=== PATIENT | male | born 1945 | race Native Hawaiian/Other Pacific Islander ===

== ENCOUNTER 2016-08-11 10:09 | Day surgery (SDC) | payer MEDICARE, OTHER ==
[2016-08-11] VITALS (8 sets, daily range): BP systolic 113–147; BP diastolic 56–83; PULSE 78–85; RESP 17–20; TEMP 98.4–98.9; O2SAT 93–98
[~2016-08-11] VITALS: Ht 167.6 cm; Wt 91.0 kg
[2016-08-11] MEDS ORDERED: METF500T PO (10:32)
[2016-08-11] MEDS ORDERED: LISI-515 PO (10:33)
[2016-08-11] MEDS ORDERED: AMLO5TAB2 PO (10:33)
[2016-08-11] MEDS ORDERED: ENOX120P SQ (10:34)
[2016-08-11] MEDS ORDERED: SODIUM CHLOR 0.9% 1000 ML IV SCH (11:00)
[2016-08-11] MEDS ORDERED: SODIUM CHLORIDE 0.9% FLUSH 10 ML FLUSH IV FLUSH PRN (11:00)
[2016-08-11] MEDS ORDERED: LIDOCAINE 1%/EPINEPHrine 1:100,000 SOLN 20 ML VIAL ONE (12:07)
[2016-08-11] MEDS ORDERED: MIDAZOLAM HCL 5 MG/5 ML VIAL ONE (12:10)
[2016-08-11] MEDS ORDERED: fentaNYL CITRATE 250 MCG/5 ML AMP ONE (12:10)
[2016-08-11] MEDS ORDERED: THROMBIN (TOPICAL) 5,000 UNIT VIAL ONE (12:28)
[2016-08-11] MEDS ORDERED: HYDROmorphone HCL PF 2 MG/ML VIAL ONE (13:16)
--- NOTE | 2016-08-11 13:41 | RADRPT ---
EXAM DATE/TIME: 08/11/2016 12:25 [facility] COMPARISON: No previous studies available for comparison. INDICATIONS : Liver mass. SEDATION TIME: 15 minutes BIOPSY SITE: Right MEDICATION(S): 1.) 3 mg midazolam (Versed) IV 2.) 150 mcg fentanyl (Sublimaze) IV DEVICE(S): 1.) 20 gauge Temno core biopsy needle MEDICAL HISTORY : Pulmonary embolis. SURGICAL HISTORY : None. ENCOUNTER: Initial ACUITY: 1 day PAIN SCORE: 0/10 LOCATION: Right A total of two core specimen(s) were obtained and sent to the laboratory for pathologic evaluation. PROCEDURE: 1. CT guided liver biopsy. 2. Conscious sedation with continuous EKG and oximetry monitoring. 3. EKG and oximetry remained stable throughout the procedure. Prior to the procedure informed consent was obtained. Any appropriate prior imaging studies were rev iewed. Using automated exposure control and adjustment of the mA and/or kV according to patient size, radiat ion dose was kept as low as reasonably achievable to obtain optimal diagnostic quality images. The site was prepped in a sterile fashion. Full sterile technique was used, including cap, mask, raz rile gloves and gown and a large sterile sheet. Hand hygiene and 2% chlorhexidine and/or betadine/al cohol prep was utilized per protocol for cutaneous antisepsis. The skin and subcutaneous tissues wer e infiltrated with local anesthetic solution. Under CT guidance an 18 gauge blunt was placed down to the lesion and 4 cores obtained. The track wa s embolized with Gelfoam and thrombin. Follow-up CT scan reveals no hemorrhage. The patient tolerated the procedure well and there were no complications. The patient was returned to the Radiology Outpatient Unit in stable condition. CONCLUSION: Uncomplicated CT guided biopsy. David Winchester MD FACR on August 11, 2016 at 13:38 Board Certified Radiologist. This report was verified electronically.
[2016-08-11] MEDS ORDERED: HYDROmorphone HCL PF 1 MG/ML VIAL IV ONE (14:00)
[2016-08-11] MEDS ORDERED: GELATIN 12 MM/7 MM FOAM ONE (14:11)
== END 2016-08-11 16:25 | disposition home or self-care (01) ==
LOC: HRAD 10:09 → HRIP 10:10 → HRAD 16:25
PROVIDERS: ATTEND Internal Medicine
DX: R16.0 Hepatomegaly, not elsewhere classified (principal); E11.9 Type 2 diabetes mellitus without complications; I10 Essential (primary) hypertension
CPT/HCPCS: 47000; 77012; 88307; 88333; 88341; 88342; J1170; J2250; J3010

== ENCOUNTER 2016-10-18 13:16 | Day surgery (SDC) | payer MEDICARE, OTHER ==
[~2016-10-18 13:16] MED LIST: AMLO5TAB2 PO; ENOX120P SQ; LISI-515 PO; METF500T PO
--- NOTE | 2016-10-18 17:02 | RADRPT ---
EXAM DATE/TIME: 10/18/2016 00:00 [facility] COMPARISON : No previous studies available for comparison. INDICATIONS : lesion L5 OBJECTIVE: Temperature: 98.2 Heart Rate: 103 Blood Pressure: 150/86 Respiratory: 20 Oximetry: 100 PNEUMONIA VACCINE: YES HISTORY OF PRESENT ILLNESS: Mr. Almeida is a very pleasant 71-year-old male who is accompanied by his daughter on this visit. He w as diagnosed with stage IV hepatocellular carcinoma in June and is status post Ytrium 90 and current ly on Sorafenib. He reports a several week history of waxing and waning what appear to be neuropathy neuropathy symptoms primarily involving the anterior thigh regions bilaterally. However, approximatel y 6 days ago he began experiencing severe low back pain with some radiation towards the gluteal regio ns. He rates his pain as 9/10 and states that current pain medications are not effective despite incr eased morphine dose from 15 to 30 mg. His pain is most prominent with movement particularly prolonged standing or sitting. He denies any bowel or urinary incontinence. He is unable to ambulate for any m ass distance due to this pain and is transported via wheelchair. Recent MRI examination demonstrates an enhancing mass in the anterior L5 vertebral body without significant compression deformity. There is no paravertebral or posterior epidural extension. He is also fully anticoagulated given recent his tory of pulmonary embolism. PAST MEDICAL HISTORY : Hypertension. Diabetes mellitus 2. HCC Pulmonary Embolism PAST SURGICAL HISTORY : Coronary artery stent. SOCIAL HISTORY : No alcohol use. Illicit drug use Tobacco;none. ALLERGIES: NKDA MEDICATIONS: Prinivil (Lisinopril) 20 mg q.d. Metformin 500 mg b.i.d. Lovenox 150 mg q.d. Nexevar 400 mg b.i.d. Mitrazine 15 mg q.d. Zanax 0.25 mg t.i.d. Megastrol 10ml mg b.i.d. Morphine 15 mg prn PHYSICAL EXAMINATION: General: No acute distress Back: Significant tenderness on palpation of the L5 vertebral body Neuro: Grossly intact IMAGING STUDIES: MRI examination of the thoracic and lumbar spine performed yesterday. There is an enhancing lesion in the anterior L5 vertebral body without evidence for significant compression deformity. Increased T2 signal is confined to the region of abnormal enhancement. 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 He does have additional pain generators which I be lieve may be neuropathy and potentially treatment related. He should benefit greatly from thermal abl ation and cement augmentation at L5. Extensive discussion regarding the risks and benefits of ablation and cement augmentation. All questi ons were answered. PLAN: L5 ablation and cement augmentation. TIME SPENT: 20 minutes. Curtis Haile MD on October 18, 2016 at 16:34 Board Certified Radiologist. This report was verified electronically.
== END 2016-10-18 14:30 | disposition home or self-care (01) ==
LOC: HROP 13:16 → HRIP 13:17 → HROP 14:30
PROVIDERS: ATTEND Internal Medicine
DX: C22.0 Liver cell carcinoma (principal)
CPT/HCPCS: 99213; G0463

== ENCOUNTER 2016-10-24 07:24 | Day surgery (SDC) | payer MEDICARE, OTHER ==
[~2016-10-24] VITALS: Ht 167.6 cm; Wt 80.0 kg
[2016-10-24 07:54] VITALS: BP 122/80; PULSE 90; RESP 18; TEMP 97.4; O2SAT 98
[2016-10-24] MEDS ORDERED: ceFAZolin 2 GM PREMIX 50 ML IV SCH (08:00)
[2016-10-24] MEDS ORDERED: SODIUM CHLOR 0.9% 1000 ML INJ 1,000 ML IV SCH (08:00)
[2016-10-24] MEDS ORDERED: OXYC1CAP PO (08:03)
[2016-10-24] MEDS ORDERED: MEGE20TA PO (08:03)
[2016-10-24] MEDS ORDERED: [UNRECOGNIZED DRUG - OTHER] PO (08:03)
[2016-10-24] MEDS ORDERED: MORP1TAB24 PO (08:03)
[2016-10-24 08:17] LABS: APTT (PATIENT) 28.2 SEC (24.3-30.1); INTERNATIONAL NORMALIZED RATIO 1.1 RATIO; PROTHROMBIN TIME - PATIENT 11.9 SEC (9.8-11.6)
[2016-10-24] MEDS ORDERED: fentaNYL CITRATE 250 MCG/5 ML AMP ONE (09:49)
[2016-10-24] MEDS ORDERED: MIDAZOLAM HCL 5 MG/5 ML VIAL ONE (09:49)
[2016-10-24] MEDS ORDERED: BUPIVACAINE HCL PF 0.75% 30 ML VIAL ONE ×2 (10:18→10:19)
[2016-10-24 12:15] VITALS: BP 123/79; PULSE 78; RESP 20; TEMP 97.5; O2SAT 92
[2016-10-24 12:30] VITALS: BP 142/81; PULSE 75; RESP 18; O2SAT 96
[2016-10-24 13:00] VITALS: BP 117/78; PULSE 82; RESP 18; O2SAT 97
[2016-10-24 13:30] VITALS: BP 105/72; PULSE 89; RESP 18; O2SAT 97
--- NOTE | 2016-10-24 13:43 | PD.RAD ---
Post Procedure Progress Note Pre Procedure Diagnosis: (1) Metastasis Post Procedure Diagnosis: (1) Metastasis Procedure Date: Oct 24, 2016 Supervising Radiologist: Curtis Haile Proceduralist/Assist: Fabian Robert, RT(R), Loretta Go RT(R)() Anesthesia: Conscious Sedation Plan of Activity Patient to Unit: ROPU Patient Condition: Good Additional Comments: L5 RFA and kyphoplasty with good result. See PACS Report for procedural detail/treatment Curtis Haile MD Oct 24, 2016 13:43
--- NOTE | 2016-10-24 14:56 | RADRPT ---
EXAM DATE/TIME: 10/24/2016 10:17 COMPARISON: No previous studies available for comparison. INDICATIONS : 71-year-old male with history of recently diagnosed stage IV hepatocellular carcinoma and metastatic disease to L5 vertebral body. Patient has an acute onset of lower lumbar debilitating pain with suspe cted combination biological and mechanical pain generator at L5. Patient therefore presents for verte bral ablation and cement augmentation. MEDICAL HISTORY : History of hepatocellular carcinoma with spinal metastases, liver mass, CAD, HTN, PE, thoracic spondy losis. SURGICAL HISTORY : History of liver biopsy, Y-90 treatment, cardiac stent placement. ENCOUNTER: Initial ACUITY: 1 month PAIN SCORE: 8/10 LOCATION: lower back and left leg FLUORO TIME: 17.7 minutes IMAGE SERIES: 4 SEDATION TIME: 105 minutes LEVEL: L5 MEDICATION(S): 1.) 4.5 mg midazolam (Versed) IV 2.) 300 mcg fentanyl (Sublimaze) IV 3.) 12 ml. Bupivicaine SC 4.) 2 g cefazolin (Ancef) IV DEVICE: 1. 8 cc AVAMax bone cement PROCEDURES PERFORMED: 1. Moderate sedation 2. L5 radiofrequency ablation and kyphoplasty FINDINGS: Prior to the procedure informed consent was obtained. Appropriate prior imaging studies were reviewed . Full sterile technique was used, including, mass, sterile gloves and gown and a large sterile sheath. Hand hygiene and 2% chlorhexidine and/or Betadine/alcohol prep was utilized per protocol for cutaneo us antisepsis. The skin and subcutaneous tissues were infiltrated with local anesthetics solution. Patient was placed prone on the angiographic table. The L5 vertebral body was localized. Bupivacaine solution was injected to the periosteal surface for local anesthesia. Next, Kyphon trocar needles wer e advanced via transpedicular approach to the L5 vertebral body. 15 mm radiofrequency ablation probes were then inserted into the anterior L5 vertebral body and complete ablation cycle was performed. Ne xt, 15 mm Kyphon balloons were inflated in the anterior vertebral body and bone cement was instilled through a cannula under careful fluoroscopic guidance. In total, approximately 8 mL of cement was inj ected. There is no evidence for cement epidural extravasation. Trocars were then removed and hemostas is obtained with manual compression. Patient tolerated the procedure well and there were no immediate postprocedural complications. CONCLUSION: 1. Technically successful L5 radiofrequency ablation and kyphoplasty, as above. Curtis Haile MD on October 24, 2016 at 14:41 Board Certified Radiologist. This report was verified electronically.
[2016-10-24 15:47] VITALS: BP 103/67; PULSE 96; RESP 18; O2SAT 93
== END 2016-10-24 16:27 | disposition home or self-care (01) ==
LOC: HROP 07:24 → HRIP 07:25 → HROP 16:27
PROVIDERS: ATTEND Internal Medicine
DX: C79.51 Secondary malignant neoplasm of bone (principal); I25.10 Atherosclerotic heart disease of native coronary artery without angina pectoris; I10 Essential (primary) hypertension; M47.894 Other spondylosis, thoracic region; Z86.711 Personal history of pulmonary embolism; Z95.5 Presence of coronary angioplasty implant and graft
CPT/HCPCS: 20982; 22514; 85610; 85730; 99152; 99153; C1886; J0690; J2250; J3010; J7030

== ENCOUNTER 2016-10-26 11:38 | Day surgery (SDC) | payer MEDICARE, OTHER ==
[~2016-10-26 11:38] MED LIST changes: -AMLO5TAB2 PO; +MEGE20TA PO; +MORP1TAB24 PO; +OXYC1CAP PO; +[UNRECOGNIZED DRUG - OTHER] PO
[2016-10-26 12:00] VITALS: BP 110/62; PULSE 107; RESP 18; TEMP 98.3; O2SAT 100
[2016-10-26] MEDS ORDERED: LACTATED RINGER'S 1000 ML INJ 1,000 ML IV ONE (14:00)
[2016-10-26] MEDS ORDERED: BUPIVACAINE HCL PF 0.75% 10 ML VIAL ONE (14:13)
[2016-10-26] MEDS ORDERED: LIDOCAINE 1%/EPINEPHrine 1:100,000 SOLN 20 ML VIAL ONE (14:13)
[2016-10-26] MEDS ORDERED: TRIAMCINOLONE ACETONIDE 40 MG/ML VIAL ONE (14:14)
[2016-10-26] MEDS ORDERED: HYDROmorphone HCL PF 2 MG/ML VIAL ONE (14:20)
[2016-10-26 15:00] VITALS: BP 111/64; PULSE 92; RESP 18; O2SAT 98
[2016-10-26 15:15] VITALS: BP 112/66; PULSE 97; RESP 18; O2SAT 98
--- NOTE | 2016-10-26 16:21 | RADRPT ---
EXAM DATE/TIME: 10/26/2016 14:33 INDICATIONS : Persistent left paraspinal lower back pain following spinal ablation and cement augmentation for meta static L5 mass. Imaging demonstrates significant left facet degenerative change at L5-S1 and this cor relates with patient's site of maximal tenderness. ACCESS LEVEL: RightL5-S1 MEDICATION(S): 1.) 1 mg hydromorphone (Dilaudid) IV DEVICE(S): 1.) 20 gauge Spinal needle MEDICAL HISTORY : Cardiovascular disease. Hypertension. Diabetes SURGICAL HISTORY : Coronary artery stent. ENCOUNTER: Initial ACUITY: 1 day PAIN SCORE: 6/10 LOCATION: Left back PROCEDURE : CT guided steroid injection. Using automated exposure control and adjustment of the mA and/or kV according to patient size, radiat ion dose was kept as low as reasonably achievable to obtain optimal diagnostic quality images. DICOM format image data is available electronically for review and comparison. The risks, benefits and alternatives to the procedure were explained and verbal and written consent w as obtained. The site was prepped in sterile fashion. Full sterile technique was used, including ca p, mask, sterile gloves and gown and a large sterile sheet. Hand hygiene and 2% chlorhexidine and/or betadine/alcohol prep was utilized per protocol for cutaneous antisepsis. The skin and subcutaneous tissues were infiltrated with local anesthetic solution. 22 gauge spinal needle was advanced under careful CT guidance into the left L5-S1 facet joint. Next, a solution containing Kenalog and anesthetic were slowly injected into the joint and the needle was r emoved. CONCLUSION: Uncomplicated CT guided left L5-S1 facet joint steroid injection as above. Curtis Haile MD on October 26, 2016 at 16:17 Board Certified Radiologist. This report was verified electronically.
== END 2016-10-26 16:20 | disposition home or self-care (01) ==
LOC: HROP 11:38 → HRIP 11:38 → HROP 16:20
PROVIDERS: ATTEND Radiology Diagnostic Radiology
DX: M54.5 Low back pain (principal); C79.51 Secondary malignant neoplasm of bone; I25.10 Atherosclerotic heart disease of native coronary artery without angina pectoris; I10 Essential (primary) hypertension; E11.9 Type 2 diabetes mellitus without complications; Z79.84 Long term (current) use of oral hypoglycemic drugs
CPT/HCPCS: 77012; 96360; 96372; J1170; J3301; J7120

== ENCOUNTER 2016-11-15 13:25 | Inpatient (IN) | payer MEDICARE, OTHER ==
[~2016-11-15] VITALS: Ht 167.6 cm; Wt 82.8 kg
[2016-11-15] MEDS ORDERED: GADODIAMIDE PF 287 MG/ML 20 ML VIAL (for RAD MRI) IVCONTRAST ONE (13:26)
[2016-11-15 13:29] VITALS: BP 79/56; PULSE 103; RESP 24; O2SAT 98
[2016-11-15 13:34] VITALS: BP 105/67; PULSE 102; RESP 22; TEMP 98.6; O2SAT 99
[2016-11-15] MEDS ORDERED: SODIUM CHLORIDE 0.9% FLUSH 10 ML FLUSH IV FLUSH PRN ×2 (14:00→18:15)
--- NOTE | 2016-11-15 14:08 | PD ---
HPI . Right upper quadrant pain Chief Complaint: Abdominal Pain Time Seen by Provider: 13:38 Travel History International Travel<30 days: No Contact w/Intl Traveler<30days: No Traveled to known affect area: No History of Present Illness HPI This patient presents to us from the oncology clinic because of right upper quadrant pain. The patient has stage IV hepatocellular carcinoma. He was reportedly treated with Dilaudid, 2 mg IV in the clinic and states that he is now pain-free. He had the onset of pain 15 hours prior to presentation. The pain was 10/10 but is now 0. No modifying factor. No vomiting or diarrhea. No fever. No urinary tract symptoms. The patient's son states that the oncologist told him that the patient needed to have a scan of his head to rule out metastases to his brain. He also states that the patient needs to be evaluated for possible PE. PFSH Past Medical History Cancer: No Cardiovascular Problems: Yes Diabetes: Yes Patient Takes Glucophage: No Endocrine: Yes Gastrointestinal Disorders: No Genitourinary: No Hepatitis: No Hiatal Hernia: No Hypertension: Yes Immune Disorder: No Medical other: No Musculoskeletal: Yes (KNEES AND ELBOWS) Neurologic: No Psychiatric: No Reproductive: No Respiratory: Yes Immunizations Current: Yes Thyroid Disease: No Past Surgical History AICD: No Cardiac Surgery: Yes (CARDIAC STENT) Joint Replacement: No Pacemaker: No Other Surgery: No Social History Alcohol Use: No Tobacco Use: No Substance Use: No Allergies-Medications (Allergen,Severity, Reaction): Coded Allergies: No Known Allergies (Unverified , 10/26/16) Reported Meds & Prescriptions Reported Meds & Active Scripts Active Dilaudid (Hydromorphone HCl) 4 Mg Tab 4 Mg PO Q4H PRN Reported Morphine ER (Morphine Sulfate) 15 Mg Tab 15 Mg PO DIRECTED PRN Oxycodone (Oxycodone HCl) 5 Mg Cap Unknown Dose PO DIRECTED PRN Megestrol (Megestrol Acetate) 20 Mg Tab 10 Mg PO BID [nexvar] 2 Tab PO BID Lovenox Inj (Enoxaparin Sodium) 120 Mg/0.8 Ml Syr 150 Mg SQ DAILY Lisinopril 20 Mg Tab 20 Mg PO DAILY Metformin (Metformin HCl) 500 Mg Tab 500 Mg PO BIDPC With meals Review of Systems Except as stated in HPI: all other systems reviewed are Neg General / Constitutional: No: Fever, Chills Gastrointestinal: Positive: Abdominal Pain, No: Nausea, Vomiting, Diarrhea Genitourinary: No: Urgency, Frequency, Dysuria Neurologic: Positive: Dizziness Physical Exam Narrative GENERAL: Awake and alert and in no acute distress. SKIN: Warm and dry. HEAD: Atraumatic. Normocephalic. EYES: Pupils equal and round. Sclera are anicteric. ENT: No nasal bleeding or discharge. Mucous membranes pink and moist. NECK: Trachea midline. Supple. CARDIOVASCULAR: Regular rate and rhythm. Systolic ejection murmur. RESPIRATORY: No accessory muscle use. Lungs clear with good air movement throughout. GASTROINTESTINAL: Abdomen soft. Minimal right upper quadrant tenderness. No guarding or rebound. Nondistended. MUSCULOSKELETAL: No obvious deformities. No edema. NEUROLOGICAL: Awake and alert. No obvious cranial nerve deficits. Motor grossly within normal limits. Normal speech. PSYCHIATRIC: Appropriate mood and affect; insight and judgment normal. Data Data Last Documented VS Vital Signs Date Time Temp Pulse Resp B/P (MAP) Pulse Ox O2 Delivery O2 Flow Rate FiO2 11/15/16 13:34 98.6 102 22 105/67 (80) 99 11/15/16 13:29 Room Air Orders Orders Complete Blood Count With Diff (11/15/16 13:51) Comprehensive Metabolic Panel (11/15/16 13:51) Prothrombin Time / Inr (Pt) (11/15/16 13:51) Act Partial Throm Time (Ptt) (11/15/16 13:51) Iv Access Insert/Monitor (11/15/16 13:51) Sodium Chloride 0.9% Flush (Ns Flush) (11/15/16 14:00) Ct Pulmonary Angiogram (11/15/16 13:51) Mri Brain W&W/O Contrast (11/15/16 13:51) Gadodiamide Pf Inj (Omniscan Pf Inj) (11/15/16 13:26) Sodium Chlor 0.9% 1000 Ml Inj (Ns 1000 M (11/15/16 16:30) Iohexol 350 Inj (Omnipaque 350 Inj) (11/15/16 16:00) Ct Abd/Pel W/O Iv Contrast (11/15/16 17:28) Labs Laboratory Tests Test 11/15/16 13:45 White Blood Count 11.2 TH/MM3 Red Blood Count 4.09 MIL/MM3 Hemoglobin 11.9 GM/DL Hematocrit 37.9 % Mean Corpuscular Volume 92.8 FL Mean Corpuscular Hemoglobin 29.1 PG Mean Corpuscular Hemoglobin Concent 31.4 % Red Cell Distribution Width 21.8 % Platelet Count 423 TH/MM3 Mean Platelet Volume 7.1 FL Neutrophils (%) (Auto) 83.4 % Lymphocytes (%) (Auto) 10.0 % Monocytes (%) (Auto) 6.5 % Eosinophils (%) (Auto) 0.0 % Basophils (%) (Auto) 0.1 % Neutrophils # (Auto) 9.4 TH/MM3 Lymphocytes # (Auto) 1.1 TH/MM3 Monocytes # (Auto) 0.7 TH/MM3 Eosinophils # (Auto) 0.0 TH/MM3 Basophils # (Auto) 0.0 TH/MM3 CBC Comment AUTO DIFF Differential Total Cells Counted 100 Neutrophils % (Manual) 73 % Band Neutrophils % 14 % Lymphocytes % 9 % Monocytes % 3 % Neutrophils # (Manual) 9.9 TH/MM3 Metamyelocytes 1 % Nucleated Red Blood Cells 1 /100 WBC Differential Comment FINAL DIFF MANUAL Platelet Estimate HIGH Platelet Morphology Comment NORMAL Prothrombin Time 11.6 SEC Prothromb Time International Ratio 1.0 RATIO Activated Partial Thromboplast Time 36.0 SEC Blood Urea Nitrogen 28 MG/DL Creatinine 0.96 MG/DL Random Glucose 93 MG/DL Total Protein 6.3 GM/DL Albumin 2.0 GM/DL Calcium Level 7.6 MG/DL Alkaline Phosphatase 117 U/L Aspartate Amino Transf (AST/SGOT) 70 U/L Alanine Aminotransferase (ALT/SGPT) 68 U/L Total Bilirubin 0.3 MG/DL Sodium Level 134 MEQ/L Potassium Level 5.0 MEQ/L Chloride Level 103 MEQ/L Carbon Dioxide Level 18.9 MEQ/L Anion Gap 12 MEQ/L Estimat Glomerular Filtration Rate 78 ML/MIN MDM Medical Decision Making Medical Screen Exam Complete: Yes Emergency Medical Condition: Yes Medical Record Reviewed: Yes (this patient is followed here in the oncology clinic for the hepatocellular carcinoma. It was diagnosed in June of this year. He has associated metastases to the long and to L5. He has had a previous PE and is on Lovenox.) Differential Diagnosis Differential diagnosis of abdominal pain includes but is not limited to gastritis, pancreatitis, hepatitis, gastroenteritis, gallbladder disease, constipation, urinary retention, UTI, peptic ulcer disease, diverticulitis or appendicitis Differential diagnosis of dizziness includes but is not limited to vertigo, dehydration, acute blood loss, sepsis, ACS Narrative Course This patient presents to us for pain control related to liver cancer. The son tells me that the patient also needs to be scanned for rule out metastatic disease to his brain. The son further states that the patient needs to have further evaluation for possible PE. I have ordered an MRI of his brain and a CT for PE. The patient is currently pain-free. CBC & BMP Diagram 11/15/16 13:45 Total Protein 6.3 L, Albumin 2.0 L, Calcium Level 7.6 L, Alkaline Phosphatase 117, Aspartate Amino Transf (AST/SGOT) 70 H, Alanine Aminotransferase (ALT/SGPT ) 68, Total Bilirubin 0.3 IVF have been ordered. Last Impressions CT Angiography 11/15/16 1351 Signed Impressions: Service Date/Time: Tuesday, November 15, 2016 15:58 - CONCLUSION: 1. Right lower lobe pulmonary mass worrisome for primary bronchogenic carcinoma or metastatic lesion. 2. Acute pulmonary embolus on the right. This is relatively small volume thrombus. 3. Metastatic disease involving the liver. Tanner Foy Jr., MD Brain MRI 11/15/16 1351 Signed Impressions: Service Date/Time: Tuesday, November 15, 2016 14:43 - CONCLUSION: 1. No acute intracranial abnormality. 2. No MRI evidence to suggest metastatic disease to the brain. 3. Atrophy. Tanner Foy Jr., MD Physician Communication Physician Communication Dr. Argueta would like for the patient to be admitted for pain control. Dr. Harrington will admit to obs. Diagnosis Primary Impression: Right upper quadrant abdominal pain Additional Impression: Liver cancer Qualified Codes: C22.0 - Liver cell carcinoma Admitting Information Admitting Physician Requests: Observation Patient Instructions: General Instructions, Pharmacological Management of Cancer Pain (DC) Additional Instructions: Dilaudid for pain unrelieved by morphine and oxycodone. Follow up with your oncologist next week for continued pain management. Med/Other Pt SpecificInfo: Prescription(s) given Condition: Stable Adali Melo MD Nov 15, 2016 14:08
[2016-11-15 14:15] LABS: AUTOMATED NEUTROPHIL # 9.4 TH/MM3 (1.8-7.7); BASOPHIL % 0.1 % (0.0-2.0); HEMATOCRIT 37.9 % (39.0-51.0); LYMPHOCYTE # 1.1 TH/MM3 (1.0-4.8); MEAN CELL VOLUME 92.8 FL (80.0-100.0); MEAN CORPUSCULAR HEMOGLOBIN 29.1 PG (27.0-34.0); MEAN CORPUSCULAR HGB CONC 31.4 % (32.0-36.0); MONO % 6.5 % (0.0-8.0); NEUT % 83.4 % (16.0-70.0); PLATELET COUNT 423 TH/MM3 (150-450); RED BLOOD COUNT 4.09 MIL/MM3 (4.50-5.90); RED CELL DISTRIBUTION WIDTH 21.8 % (11.6-17.2); WHITE BLOOD COUNT 11.2 TH/MM3 (4.0-11.0)
[2016-11-15 14:16] LABS: HEMO FLAGS AUTO DIFF
[2016-11-15 14:25] LABS: PROTHROMBIN TIME - PATIENT 11.6 SEC (9.8-11.6)
[2016-11-15 14:28] LABS: ANION GAP 12 MEQ/L (5-15); AST (GOT) 70 U/L (15-37); BICARBONATE 18.9 MEQ/L (21.0-32.0); BLOOD UREA NITROGEN 28 MG/DL (7-18); CHLORIDE 103 MEQ/L (98-107); GLOMERULAR FILTRATION RATE 78 ML/MIN (>89); SODIUM (NA) 134 MEQ/L (136-145)
[2016-11-15 14:29] LABS: ALT (GPT) 68 U/L (12-78)
[2016-11-15 14:31] LABS: ALKALINE PHOSPHATASE 117 U/L (45-117); TOTAL BILIRUBIN ADULT 0.3 MG/DL (0.2-1.0)
[2016-11-15 14:49] LABS: BANDS 14 % (0-6); CORRECTED NUCLEATED RBC 1 /100 WBC (0-0); METAMYELOCYTES 1 % (0-1); NEUTROPHIL # MANUAL DIFF 9.9 TH/MM3 (1.8-7.7); POLYS (SEG NEUTROPHILS) 73 % (16-70); WBC DIFF SAMPLE 100
[2016-11-15 14:50] LABS: PLATELET ESTIMATE SMEAR HIGH (NORMAL); PLATELET MORPHOLOGY NORMAL (NORMAL)
[2016-11-15 14:51] LABS: SCAN/DIFF FINAL DIFF MANUAL
--- NOTE | 2016-11-15 15:30 | RADRPT ---
EXAM DATE/TIME: 11/15/2016 14:43 [facility] COMPARISON: No previous studies available for comparison. INDICATIONS : Metastatic disease. Dizziness. CONTRAST: 16 cc Omniscan (gadodiamide) IV MEDICAL HISTORY : Liver cancer. SURGICAL HISTORY : Discectomy, lumbar. Kyphoplasty. ENCOUNTER: Initial ACUITY: 1 day PAIN SCORE: 0/10 LOCATION: head. TECHNIQUE: Multiplanar, multisequence MRI of the brain was performed both prior to and following the administrat ion of paramagnetic contrast. FINDINGS: CEREBRUM: Atrophy. The ventricles are normal for age. No evidence of midline shift, mass lesion, hemorrhage or acute infarction. No extraaxial fluid collections are seen. The pituitary gland and suprasellar ci salomon are normal in configuration. WHITE MATTER: No significant signal abnormalities are seen in the white matter. POSTERIOR FOSSA: The cerebellum and brainstem are intact. The 4th ventricle is midline. The cerebellopontine angle is unremarkable. The cerebellar tonsils are normal in position. DIFFUSION IMAGING: No focal areas of restricted diffusion are seen. No evidence of acute infarction. EXTRACRANIAL: The visualized portions of the orbits and paranasal sinuses are unremarkable. POST-CONTRAST: No abnormal areas of parenchymal or dural enhancement. No evidence of blood-brain barrier breakdown. CONCLUSION: 1. No acute intracranial abnormality. 2. No MRI evidence to suggest metastatic disease to the brain. 3. Atrophy. Tanner Foy Jr., MD on November 15, 2016 at 15:24 Board Certified Radiologist. This report was verified electronically.
[2016-11-15] MEDS ORDERED: IOHEXOL 350 MG/ML 10 ML VIAL (for RAD DIAG) IV PUSH ONE (16:00)
[2016-11-15] MEDS ORDERED: SODIUM CHLOR 0.9% 1000 ML INJ 1,000 ML IV ONE (16:30)
[2016-11-15] MEDS ORDERED: DILA4TAB2 PO (16:33)
--- NOTE | 2016-11-15 16:48 | RADRPT ---
EXAM DATE/TIME: 11/15/2016 15:58 [facility] COMPARISON: No previous studies available for comparison. INDICATIONS : Right sided pain since last night. IV CONTRAST: 80 cc Omnipaque 350 (iohexol) IV RADIATION DOSE: 25.8 CTDIvol (mGy) MEDICAL HISTORY : Carcinoma, hepatocellular. Hypertension. Diabetes mellitus type 2. SURGICAL HISTORY : ENCOUNTER: Initial ACUITY: 1 day PAIN SCALE: 10/10 LOCATION: Right upper quadrant TECHNIQUE: Volumetric scanning of the chest was performed using a pulmonary embolism protocol MIP images were re constructed. Using automated exposure control and adjustment of the mA and/or kV according to patien t size, radiation dose was kept as low as reasonably achievable to obtain optimal diagnostic quality images. DICOM format image data is available electronically for review and comparison. Follow-up recommendations for detected pulmonary nodules are based at a minimum on nodule size and pa tient risk factors according to Fleischner Society Guidelines. FINDINGS: PULMONARY ARTERIES: A filling defect is seen involving the interlobar pulmonary artery on the right with extension into t he proximal basilar segmental branches. No embolus seen on the left. Pulmonary arteries are normal in caliber. LUNGS: Within the super segment of the right lower lobe there is a bilobed some pleural-parenchymal mass and measures 2.9 x 2.4 x 2.2 cm. Diffuse emphysematous changes. PLEURAE: There is no pleural thickening or pleural effusion. MEDIASTINUM: The heart is normal in size. No pericardial effusion. Aorta is normal in caliber. Significant coronar y artery atherosclerotic calcifications. Small anterior mediastinal lymph nodes observed. The largest is precarinal measuring 1.2 x 0.9 cm. A normal fatty hilar structure is seen associated with this ly mph node. MUSCULOSKELETAL: Within normal limits for patient age. MISCELLANEOUS: Multiple hepatic masses observed consistent with metastatic disease. A dominant mass within the right lobe measures approximately 10 cm in diameter. CONCLUSION: 1. Right lower lobe pulmonary mass worrisome for primary bronchogenic carcinoma or metastatic lesion. 2. Acute pulmonary embolus on the right. This is relatively small volume thrombus. 3. Metastatic disease involving the liver. Tanner Foy Jr., MD on November 15, 2016 at 16:28 Board Certified Radiologist. This report was verified electronically.
[2016-11-15 17:00] VITALS: BP 116/62; PULSE 84; RESP 20
--- NOTE | 2016-11-15 18:03 | RADRPT ---
EXAM DATE/TIME: 11/15/2016 17:40 [facility] COMPARISON: No previous studies available for comparison. INDICATIONS : Right side pain since last night. ORAL CONTRAST: No oral contrast ingested. RADIATION DOSE: 9.96 CTDIvol (mGy) MEDICAL HISTORY : Metastatic, liver. Hypertension. SURGICAL HISTORY : Carotid stent. ENCOUNTER: Initial ACUITY: 1 day PAIN SCALE: 10/10 LOCATION: Right lower quadrant TECHNIQUE: Volumetric scanning of the abdomen and pelvis was performed. Using automated exposure control and ad justment of the mA and/or kV according to patient size, radiation dose was kept as low as reasonably achievable to obtain optimal diagnostic quality images. DICOM format image data is available electro nically for review and comparison. FINDINGS: There are patchy ground glass infiltrates in the lingula and right lower lobe. No effusions. There ar e multiple ill-defined masses throughout the liver with a confluent heterogeneous hypodense mass in t he right lobe measuring 9 point centimeters. There is a cardiophrenic lymph node measuring 1.2 cm in short axis dimension. The liver has a nodular contour. There is diffuse gallbladder wall thickening. The spleen is small in size. Pancreas normal. Adrenal glands are normal. Kidneys are unremarkable wit h contrast in the collecting systems and urinary bladder which is normal. There is evidence of previo us TURP procedure. Stomach, small bowel, large bowel are unremarkable. There are foci of subcutaneous air and nodularity in the anterior, wall at the level of the umbilicus from medicinal injections. No signs of bowel obstruction, free fluid or free air. Osseous structures are intact with degenerative changes noted and previous kyphoplasty at L5. L5 spondylolysis bilaterally. CONCLUSION: 1. Metastatic disease to the liver. 2. Patchy infiltrates in the visualized lungs. 3. L5 pars defects. Goyo Santillan MD on November 15, 2016 at 17:59 Board Certified Radiologist. This report was verified electronically.
[2016-11-15] MEDS ORDERED: NALOXONE HCL 0.4 MG/ML AMP IV PRN (18:15)
[2016-11-15] MEDS ORDERED: BISACODYL 10 MG SUPP RECTAL PRN (18:15)
[2016-11-15] MEDS ORDERED: MAGNESIUM HYDROXIDE SUSP 30 ML CUP PO PRN (18:15)
[2016-11-15] MEDS ORDERED: ACETAMINOPHEN 325 MG TAB PO PRN (18:15)
[2016-11-15] MEDS ORDERED: LACTULOSE SYRUP 20 GM/30 ML CUP PO PRN (18:15)
[2016-11-15] MEDS ORDERED: ONDANSETRON HCL 4 MG/2 ML VIAL IVP PRN (18:15)
[2016-11-15] MEDS ORDERED: SENNOSIDES 8.6 MG TAB PO PRN (18:15)
[2016-11-15] MEDS ORDERED: GLUCAGON 1 MG/ML VIAL OTHER PRN (18:15)
[2016-11-15] MEDS ORDERED: DEXTROSE 50% IN WATER 50 ML VIAL(D50) IV PRN (18:15)
[2016-11-15] MEDS ORDERED: oxyCODONE/ACETAMINOPHEN 5 MG/325 MG TAB PO PRN (18:45)
[2016-11-15] MEDS ORDERED: HYDROmorphone HCL PF 1 MG/ML VIAL IV PUSH PRN (18:45)
--- NOTE | 2016-11-15 19:06 | HHI.HP ---
[facility] Non-Staff Admission Diagnosis cancer pain Diagnoses: Chief Complaint: Abdominal pain Travel History International Travel<30 Days: No Contact w/Intl Traveler <30 Da: No Traveled to Known Affected Are: No History of Present Illness Written by Jackson Castaneda PA-C, acting as scribe for Dr. Grayson Harrington on 11/15/16 at 18:50. is 71 yo, of [place] decent with history inclusive of Stage IV hepatocellular cancer (he is followed by Dr. Shilo Argueta, Oncology), hypertension , hyperlipidemia, coronary artery disease, heart disease, diabetes. 's primary care physician is Miguel Joel M.D. Mr. Almeida was diagnosed in June, with hepatocellular cancer. At the time of his diagnosis he also had pulmonary emboli and was placed daily Lovenox injections. Since that time he has developed anorexia, cachexia, bone pain, and shortness of breath. Metastasis resulted in L5 damage. Mr. Almeida underwent radio frequency ablation and kyphoplasty on 10/24/16. Mr. Almeida presents to [facility] due to uncontrolled abdominal pain. He stated the pain worsened last evening and was "moving all over here (upper right quadrant) last night. He also stated he becomes short of breath "when I take even a few steps." He stated he came to [facility] ED for management and evaluation of his condition. Mr. Almeida denied fever, chills, cough, cardiac chest pain, headache , visual disturbance, NVD. He did report having a heart murmur and underwent an echocardiogram in his PCP's office last Sunday. He stated those results were negative. Mr. Almeida also reported he experiences pain "when I take a deep breath." A 10 point ROS was conducted and, except as noted above was negative. ED staff administered pain medication which Mr. Almeida stated "started to help very quickly." MRI of the brain was negative for metastases. CTA indicated the presence of a mass in the right lower lobe of the lung. Pulmonary embolus was noted in the right lower lobe of the lung. Liver metastases was noted. Pelvic CT indicated liver metastases, patchy infiltrates to the visualized lobes, and L5 pars defects. Mr. Almeida is being admitted to address his presenting issues. Review of Systems Except as stated in HPI: all other systems reviewed are Neg Past Family Social History Past Medical History Anorexia Cachexia Coronary artery disease Diabetes Heart disease, Stage IV hepatocellular cancer Hyperlipidemia Hypertension Osteoarthritis Past Surgical History L5- Radio frequency ablation and kyphoplasty (10/24/16) Stent placement (2007) Reported Medications Reported Meds & Active Scripts Active Reported Morphine ER (Morphine Sulfate) 15 Mg Tab 15 Mg PO DIRECTED PRN Oxycodone (Oxycodone HCl) 5 Mg Cap Unknown Dose PO DIRECTED PRN Megestrol (Megestrol Acetate) 20 Mg Tab 10 Mg PO BID [nexvar] 2 Tab PO BID Lovenox Inj (Enoxaparin Sodium) 120 Mg/0.8 Ml Syr 150 Mg SQ DAILY Lisinopril 20 Mg Tab 20 Mg PO DAILY Metformin (Metformin HCl) 500 Mg Tab 500 Mg PO BIDPC With meals Allergies: Coded Allergies: No Known Allergies (Unverified , 10/26/16) Active Ordered Medications Current Medications Medications (Trade) Dose Ordered Sig/Hilary Route Start Time Stop Time Status Last Admin (NS Flush) 2 ml UNSCH PRN IV FLUSH 11/15/16 14:00 (Lovenox Inj) 150 mg DAILY SQ 11/16/16 09:00 UNV (Prinivil) 20 mg DAILY PO 11/16/16 09:00 UNV (Megace) 10 mg BID PO 11/15/16 21:00 UNV Sodium Chloride 1,000 ml @ 75 mls/hr [id number] IV 11/15/16 18:07 11/16/16 07:26 UNV (NS Flush) 2 ml UNSCH PRN IV FLUSH 11/15/16 18:15 UNV (NS Flush) 2 ml BID IV FLUSH 11/15/16 21:00 UNV (Tylenol) 650 mg Q4H PRN PO 11/15/16 18:15 UNV (Zofran Inj) 4 mg Q6H PRN IVP 11/15/16 18:15 UNV (Narcan Inj) 0.4 mg UNSCH PRN IV 11/15/16 18:15 UNV (Alyx-Colace) 1 tab BID PO 11/15/16 21:00 UNV (Milk Of Magnesia Liq) 30 ml Q12H PRN PO 11/15/16 18:15 UNV (Senokot) 17.2 mg Q12H PRN PO 11/15/16 18:15 UNV (Dulcolax Supp) 10 mg DAILY PRN RECTAL 11/15/16 18:15 UNV (Lactulose Liq) 30 ml DAILY PRN PO 11/15/16 18:15 UNV (D50w (Vial) Inj) 50 ml UNSCH PRN IV 11/15/16 18:15 UNV (Glucagon Inj) 1 mg UNSCH PRN OTHER 11/15/16 18:15 UNV (NovoLOG SUPPLEMENTAL SCALE) 1 ACHS SLIDING SCALE SQ 11/15/16 21:00 UNV (Oramorph Sr) 30 mg Q12HR PO 11/15/16 21:00 UNV (Percocet 5-325 Mg) 1 tab Q4H PRN PO 11/15/16 18:45 UNV (Dilaudid Pf Inj) 1 mg Q4H PRN IV PUSH 11/15/16 18:45 UNV Family History Father age 68 throat cancer Mother age 70 due to myocardial infarction. Brother age 62 due to "blood cancer". Social History Pt denied nicotine use. Pt denied illicit/recreational drug use. Alcohol use was denied. Physical Exam Vital Signs Vital Signs Date Time Temp Pulse Resp B/P (MAP) Pulse Ox O2 Delivery O2 Flow Rate FiO2 11/15/16 17:00 84 20 116/62 (80) 11/15/16 13:34 98.6 102 22 105/67 (80) 99 11/15/16 13:29 103 24 79/56 (64) 98 Room Air Physical Exam GENERAL: This is a well-nourished, well-developed patient, in no apparent distress. SKIN: No rashes, ecchymoses or lesions. Cool and dry. HEAD: Atraumatic. Normocephalic. EYES: Pupils equal round and reactive. Extraocular motions intact. No scleral icterus. No injection or drainage. ENT: Nose without bleeding or purulent drainage Airway patent. NECK: Trachea midline. No lymphadenopathy. Supple and nontender. CARDIOVASCULAR: Regular rate and rhythm without gallops or rubs. Systolic murmur was noted. RESPIRATORY: Clear to auscultation. Breath sounds equal bilaterally. No wheezes , rales, or rhonchi. GASTROINTESTINAL: Abdomen soft and nondistended. No hepato-splenomegaly, palpable masses or guarding. Right upper quadrant tenderness elicited upon palpation. MUSCULOSKELETAL: Extremities without clubbing, cyanosis, or edema. No joint tenderness, effusion, or edema noted. NEUROLOGICAL: Awake and alert. Cranial nerves II through XII intact. Motor and sensory grossly within normal limits. Five out of 5 muscle strength in all muscle groups. Speech was clear and fluent. Laboratory Laboratory Tests Test 11/15/16 13:45 White Blood Count 11.2 Red Blood Count 4.09 Hemoglobin 11.9 Hematocrit 37.9 Mean Corpuscular Volume 92.8 Mean Corpuscular Hemoglobin 29.1 Mean Corpuscular Hemoglobin Concent 31.4 Red Cell Distribution Width 21.8 Platelet Count 423 Mean Platelet Volume 7.1 Neutrophils (%) (Auto) 83.4 Lymphocytes (%) (Auto) 10.0 Monocytes (%) (Auto) 6.5 Eosinophils (%) (Auto) 0.0 Basophils (%) (Auto) 0.1 Neutrophils # (Auto) 9.4 Lymphocytes # (Auto) 1.1 Monocytes # (Auto) 0.7 Eosinophils # (Auto) 0.0 Basophils # (Auto) 0.0 CBC Comment AUTO DIFF Differential Total Cells Counted 100 Neutrophils % (Manual) 73 Band Neutrophils % 14 Lymphocytes % 9 Monocytes % 3 Neutrophils # (Manual) 9.9 Metamyelocytes 1 Nucleated Red Blood Cells 1 Differential Comment FINAL DIFF MANUAL Platelet Estimate HIGH Platelet Morphology Comment NORMAL Prothrombin Time 11.6 Prothromb Time International Ratio 1.0 Activated Partial Thromboplast Time 36.0 Blood Urea Nitrogen 28 Creatinine 0.96 Random Glucose 93 Total Protein 6.3 Albumin 2.0 Calcium Level 7.6 Alkaline Phosphatase 117 Aspartate Amino Transf (AST/SGOT) 70 Alanine Aminotransferase (ALT/SGPT) 68 Total Bilirubin 0.3 Sodium Level 134 Potassium Level 5.0 Chloride Level 103 Carbon Dioxide Level 18.9 Anion Gap 12 Estimat Glomerular Filtration Rate 78 Result Diagram: 11/15/16 1345 11/15/16 1345 Imaging Last Impressions Abdomen/Pelvis CT 11/15/16 4208 Signed Impressions: Service Date/Time: Tuesday, November 15, 2016 17:40 - CONCLUSION: 1. Metastatic disease to the liver. 2. Patchy infiltrates in the visualized lungs. 3. L5 pars defects. Goyo Santillan MD CT Angiography 11/15/161350 Signed Impressions: Service Date/Time: Tuesday, November 15, 2016 15:58 - CONCLUSION: 1. Right lower lobe pulmonary mass worrisome for primary bronchogenic carcinoma or metastatic lesion. 2. Acute pulmonary embolus on the right. This is relatively small volume thrombus. 3. Metastatic disease involving the liver. Tanner Foy Jr., MD Brain MRI 11/15/161350 Signed Impressions: Service Date/Time: Tuesday, November 15, 2016 14:43 - CONCLUSION: 1. No acute intracranial abnormality. 2. No MRI evidence to suggest metastatic disease to the brain. 3. Atrophy. Tanner Foy Jr., MD Capmarshai VTE Risk Assessment Caprini VTE Risk Assessment: Mod/High Risk (score >= 2) Caprini Risk Assessment Model Point Value = 1 Point Value = 2 Point Value = 3 Point Value = 5 Age 41-60 Minor surgery BMI > 25 kg/m2 Swollen legs Varicose veins or History of unexplained or recurrent spontaneous Oral contraceptives or hormone replacement Sepsis (< 1 month) Serious lung disease, including pneumonia (< 1 month) Abnormal pulmonary function Acute myocardial infarction Congestive heart failure (< 1 month) History of inflammatory bowel disease Medical patient at bed rest Age 61-74 Arthroscopic surgery Major open surgery (> 45 min) Laparoscopic surgery (> 45 min) Malignancy Confined to bed (> 72 hours) Immobilizing plaster cast Central venous access Age >= 75 History of VTE Family history of VTE Factor V Leiden Prothrombin [id number] Lupus anticoagulant Anticardiolipin antibodies Elevated serum homocysteine Heparin-induced thrombocytopenia Other congenital or acquired thrombophilia Stroke (< 1 month) Elective arthroplasty Hip, pelvis, or leg fracture Acute spinal cord injury (< 1 month) Prophylaxis Regimen Total Risk Factor Score Risk Level Prophylaxis Regimen 0-1 Low Early ambulation 2 Moderate Order ONE of the following: *Sequential Compression Device (SCD) *Heparin 5000 units SQ BID 3-4 Higher Order ONE of the following medications: *Heparin 5000 units SQ TID *Enoxaparin/Lovenox 40 mg SQ daily (WT < 150 kg, CrCl > 30 mL/min) *Enoxaparin/Lovenox 30 mg SQ daily (WT < 150 kg, CrCl > 10-29 mL/min) *Enoxaparin/Lovenox 30 mg SQ BID (WT < 150 kg, CrCl > 30 mL/min) AND/OR *Sequential Compression Device (SCD) 5 or more Highest Order ONE of the following medications: *Heparin 5000 units SQ TID (Preferred with Epidurals) *Enoxaparin/Lovenox 40 mg SQ daily (WT < 150 kg, CrCl > 30 mL/min) *Enoxaparin/Lovenox 30 mg SQ daily (WT < 150 kg, CrCl > 10-29 mL/min) *Enoxaparin/Lovenox 30 mg SQ BID (WT < 150 kg, CrCl > 30 mL/min) AND *Sequential Compression Device (SCD) Assessment and Plan Problem List: (1) Right upper quadrant abdominal pain ICD Code: R10.11 - Right upper quadrant pain Status: Acute (2) Liver cancer ICD Code: C22.9 - Malignant neoplasm of liver, not specified as primary or secondary Status: Acute (3) Pulmonary embolism ICD Code: I26.99 - Other pulmonary embolism without acute cor pulmonale Status: Acute (4) Metastasis ICD Code: C79.9 - Secondary malignant neoplasm of unspecified site Status: Acute (5) Diabetes mellitus type II, controlled ICD Code: E11.9 - Type 2 diabetes mellitus without complications Status: Chronic (6) Hypertension, essential ICD Code: I10 - Essential (primary) hypertension Status: Chronic Assessment and Plan is 71 yo, of [place] with history inclusive of Stage IV hepatocellular cancer (he is followed by Dr. Shilo Argueta, Oncology), hypertension , hyperlipidemia, coronary artery disease, heart disease, diabetes. Pt's primary care physician is Miguel Joel M.D. Mr. Almeida was diagnosed in June, with hepatocellular cancer. At the time of his diagnosis he also had pulmonary emboli and was placed daily Lovenox injections. Since that time he has developed anorexia, cachexia, bone pain, and shortness of breath. Metastasis resulted in L5 damage. Mr. Almeida underwent radio frequency ablation and kyphoplasty on 10/24/16. Right upper quadrant pain Liver cancer Pulmonary embolism -Oncology consulted -manage pain -continue Lovenox 150 mg sq daily. Hypertension -Continue lisinopril 20 mg daily Diabetes -finger sticks q ac and HS -sliding scale novolog, low dose regimen. -ADA 1800 calories consistent carbohydrate diet This note was transcribed by scribe [Jackson Castaneda]. I, Dr. Victoria Harrington personally performed the history, physical exam, and medical decision making; and confirmed the accuracy of the information in the transcribed note. Authenticated by Dr. iVctoria Harrington on 11/15/16 at 1900. Discussed Condition With Pt and his adult son (at bedside) and ED staff Physician Certification 2 Midnight Certification Type: Admission for Inpatient Services Order for Inpatient Services The services are ordered in accordance with Medicare regulations or non- Medicare payer requirements, as applicable. In the case of services not specified as inpatient-only, they are appropriately provided as inpatient services in accordance with the 2-midnight benchmark. Estimated LOS (days): 3 Three days is the estimated time the patient will need to remain in the hospital , assuming treatment plan goals are met and no additional complications. Post-Hospital Plan: Home Problem Qualifiers (1) Liver cancer: Qualified Codes: C22.0 - Liver cell carcinoma (2) Pulmonary embolism: Qualified Codes: I26.99 - Other pulmonary embolism without acute cor pulmonale (3) Metastasis: Qualified Codes: C78.00 - Secondary malignant neoplasm of unspecified lung (4) Diabetes mellitus type II, controlled: Qualified Codes: E11.9 - Type 2 diabetes mellitus without complications Jackson Castaneda Jr. Nov 15, 2016 19:06 Victoria Harrington MD Nov 15, 2016 21:20
[2016-11-15 19:10] VITALS: BP 95/65; PULSE 107; RESP 18; O2SAT 98
[2016-11-15 20:00] VITALS: BP 118/73; PULSE 104; RESP 17; TEMP 96.6; O2SAT 99
[2016-11-15] MEDS ORDERED: SODIUM CHLOR 0.45% 1000 ML INJ 1,000 ML IV SCH (21:00)
[2016-11-15 21:36] VITALS: BP 132/79; PULSE 110; RESP 18; O2SAT 99
[2016-11-15] MEDS: MORPHINE SULFATE 30 MG CONTROLLED RELEASE TAB PO SCH (21:48)
[2016-11-15] MEDS: MEGESTROL ACETATE 40 MG TAB PO SCH (21:48)
[2016-11-15] MEDS: DOCUSATE SODIUM 50 MG/SENNA 8.6 MG TAB PO SCH (21:48)
[2016-11-15] MEDS: INSULIN ASPART SUPPLEMENTAL SCALE SQ SCH (21:52)
[2016-11-15] MEDS: SODIUM CHLORIDE 0.9% FLUSH 10 ML FLUSH IV FLUSH SCH (21:52)
[2016-11-16] VITALS: BP 136/71; PULSE 95; RESP 18; TEMP 96.6; O2SAT 97
[2016-11-16 04:00] VITALS: BP 140/76; PULSE 103; RESP 18; TEMP 97.6; O2SAT 98
[2016-11-16 07:14] LABS: AUTOMATED NEUTROPHIL # 10.1 TH/MM3 (1.8-7.7); BASOPHIL % 0.1 % (0.0-2.0); HEMATOCRIT 34.4 % (39.0-51.0); LYMPH % 5.3 % (9.0-44.0); LYMPHOCYTE # 0.6 TH/MM3 (1.0-4.8); MEAN CELL VOLUME 92.4 FL (80.0-100.0); MEAN CORPUSCULAR HEMOGLOBIN 30.6 PG (27.0-34.0); MEAN CORPUSCULAR HGB CONC 33.1 % (32.0-36.0); MONO % 5.2 % (0.0-8.0); NEUT % 89.4 % (16.0-70.0); PLATELET COUNT 286 TH/MM3 (150-450); RED BLOOD COUNT 3.72 MIL/MM3 (4.50-5.90); RED CELL DISTRIBUTION WIDTH 22.1 % (11.6-17.2); WHITE BLOOD COUNT 11.3 TH/MM3 (4.0-11.0)
[2016-11-16 07:41] LABS: BICARBONATE 21.4 MEQ/L (21.0-32.0); POTASSIUM 4.4 MEQ/L (3.5-5.1)
[2016-11-16] MEDS: INSULIN ASPART SUPPLEMENTAL SCALE SQ SCH ×4 (07:49→22:25)
[2016-11-16 07:52] LABS: HEMO FLAGS AUTO DIFF
[2016-11-16 07:59] LABS: CALCIUM-PROTEIN CORRECTED 8.2 MG/DL (8.5-10.1)
[2016-11-16 08:00] VITALS: BP 124/76; PULSE 93; RESP 21; TEMP 97.2; O2SAT 98
[2016-11-16 08:46] LABS: BANDS 7 % (0-6); CORRECTED NUCLEATED RBC 1 /100 WBC (0-0); METAMYELOCYTES 2 % (0-1); NEUTROPHIL # MANUAL DIFF 10.6 TH/MM3 (1.8-7.7); POLYS (SEG NEUTROPHILS) 85 % (16-70); WBC DIFF SAMPLE 100
[2016-11-16 08:47] LABS: ACANTHOCYTES OCC (NORMAL); PLATELET ESTIMATE SMEAR NORMAL (NORMAL); PLATELET MORPHOLOGY NORMAL (NORMAL); SCAN/DIFF FINAL DIFF MANUAL
[2016-11-16] MEDS ORDERED: ENOXAPARIN SODIUM 120 MG/0.8 ML SYRINGE SQ SCH (09:00)
--- NOTE | 2016-11-16 09:47 | RADRPT ---
EXAM DATE/TIME: 11/16/2016 08:11 [place] COMPARISON: CT PULMONARY ANGIOGRAM, November 15, 2016, 15:58. CT ABDOMEN & PELVIS W/O CONTRAST, November 15, 2016, 1 7:40. INDICATIONS : Abdominal pain. Liver cancer. CONTRAST: 16 cc Omniscan (gadodiamide) IV MEDICAL HISTORY : Liver cancer. SURGICAL HISTORY : Discectomy, lumbar. ENCOUNTER: Subsequent ACUITY: 2 day PAIN SCORE: 3/10 LOCATION: abdomen. TECHNIQUE: Multiplanar, multisequence magnetic resonance imaging of the abdomen was performed. High-resolution 3D dataset was utilized to reconstruct maximum-intensity projection (MIP) images. FINDINGS: There are numerous masses in the liver are highly suspicious for malignancy and possibly metasta tic disease involving both lobes the largest measures 11 cm in size in right hepatic lobe demonstrati ng inhomogeneous enhancement. Common bile duct measures almost 3 mm without filling defects and there is no evidence for intrahepatic ductal dilatation. Approximate 1 cm area of diminished enhancement i s present in the liver towards the superior anterior margin without any T2 prolongation. Etiology is not certain and this area could be benign. CONCLUSION: 1. Multiple malignant appearing masses in the liver and metastatic disease is suspected. 2. Probable benign lesion involving the anterior portion of the spleen could be followed. 3. Not mentioned above is masslike density in right lung discussed on the patient's prior CT angiogra m of the chest. Antony Jasso MD on November 16, 2016 at 9:22 Board Certified Radiologist. This report was verified electronically.
[2016-11-16] MEDS ORDERED: GADODIAMIDE PF 287 MG/ML 20 ML VIAL (for RAD MRI) IVCONTRAST ONE (10:34)
--- NOTE | 2016-11-16 11:25 | PD.ONC.PN ---
Subjective Subjective Remarks Afebrile Patient reports pain much better controlled Has just returned from [facility]. Objective Data Date Time Temp Pulse Resp B/P (MAP) Pulse Ox O2 Delivery O2 Flow Rate FiO2 11/16/16 08:00 97.2 93 21 124/76 (92) 98 11/16/16 04:00 97.6 103 18 140/76 (97) 98 11/16/16 00:59 18 11/16/16 00:00 96.6 95 18 136/71 (92) 97 11/15/16 22:45 18 11/15/16 22:45 18 11/15/16 21:36 110 18 132/79 (96) 99 11/15/16 20:00 96.6 104 17 118/73 (88) 99 11/15/16 19:49 11/15/16 19:10 107 18 95/65 (75) 98 Room Air 11/15/16 17:00 84 20 116/62 (80) 11/15/16 13:34 98.6 102 22 105/67 (80) 99 11/15/16 13:29 103 24 79/56 (64) 98 Room Air Result Diagram: 11/16/16 0540 11/16/16 0540 Laboratory Results Laboratory Tests Test 11/15/16 13:45 11/16/16 05:40 White Blood Count 11.2 TH/MM3 11.3 TH/MM3 Red Blood Count 4.09 MIL/MM3 3.72 MIL/MM3 Hemoglobin 11.9 GM/DL 11.4 GM/DL Hematocrit 37.9 % 34.4 % Mean Corpuscular Volume 92.8 FL 92.4 FL Mean Corpuscular Hemoglobin 29.1 PG 30.6 PG Mean Corpuscular Hemoglobin Concent 31.4 % 33.1 % Red Cell Distribution Width 21.8 % 22.1 % Platelet Count 423 TH/MM3 286 TH/MM3 Mean Platelet Volume 7.1 FL 7.7 FL Neutrophils (%) (Auto) 83.4 % 89.4 % Lymphocytes (%) (Auto) 10.0 % 5.3 % Monocytes (%) (Auto) 6.5 % 5.2 % Eosinophils (%) (Auto) 0.0 % 0.0 % Basophils (%) (Auto) 0.1 % 0.1 % Neutrophils # (Auto) 9.4 TH/MM3 10.1 TH/MM3 Lymphocytes # (Auto) 1.1 TH/MM3 0.6 TH/MM3 Monocytes # (Auto) 0.7 TH/MM3 0.6 TH/MM3 Eosinophils # (Auto) 0.0 TH/MM3 0.0 TH/MM3 Basophils # (Auto) 0.0 TH/MM3 0.0 TH/MM3 CBC Comment AUTO DIFF AUTO DIFF Differential Total Cells Counted 100 100 Neutrophils % (Manual) 73 % 85 % Band Neutrophils % 14 % 7 % Lymphocytes % 9 % 4 % Monocytes % 3 % 2 % Neutrophils # (Manual) 9.9 TH/MM3 10.6 TH/MM3 Metamyelocytes 1 % 2 % Nucleated Red Blood Cells 1 /100 WBC 1 /100 WBC Differential Comment FINAL DIFF MANUAL FINAL DIFF MANUAL Platelet Estimate HIGH NORMAL Platelet Morphology Comment NORMAL NORMAL Prothrombin Time 11.6 SEC Prothromb Time International Ratio 1.0 RATIO Activated Partial Thromboplast Time 36.0 SEC Blood Urea Nitrogen 28 MG/DL 27 MG/DL Creatinine 0.96 MG/DL 0.70 MG/DL Random Glucose 93 MG/DL 121 MG/DL Total Protein 6.3 GM/DL 5.6 GM/DL Albumin 2.0 GM/DL Calcium Level 7.6 MG/DL 7.4 MG/DL Alkaline Phosphatase 117 U/L Aspartate Amino Transf (AST/SGOT) 70 U/L Alanine Aminotransferase (ALT/SGPT) 68 U/L Total Bilirubin 0.3 MG/DL Sodium Level 134 MEQ/L 134 MEQ/L Potassium Level 5.0 MEQ/L 4.4 MEQ/L Chloride Level 103 MEQ/L 105 MEQ/L Carbon Dioxide Level 18.9 MEQ/L 21.4 MEQ/L Anion Gap 12 MEQ/L 8 MEQ/L Estimat Glomerular Filtration Rate 78 ML/MIN 112 ML/MIN Acanthocytes OCC Protein Corrected Calcium 8.2 MG/DL Imaging Studies Last 24 hours Impressions Abdomen/Pelvis CT 11/15/16 1728 Signed Impressions: Service Date/Time: Tuesday, November 15, 2016 17:40 - CONCLUSION: 1. Metastatic disease to the liver. 2. Patchy infiltrates in the visualized lungs. 3. L5 pars defects. Goyo Santillan MD CT Angiography 11/15/16 1351 Signed Impressions: Service Date/Time: Tuesday, November 15, 2016 15:58 - CONCLUSION: 1. Right lower lobe pulmonary mass worrisome for primary bronchogenic carcinoma or metastatic lesion. 2. Acute pulmonary embolus on the right. This is relatively small volume thrombus. 3. Metastatic disease involving the liver. Tanner Foy Jr., MD Brain MRI 11/15/16 1357 Signed Impressions: Service Date/Time: Tuesday, November 15, 2016 14:43 - CONCLUSION: 1. No acute intracranial abnormality. 2. No MRI evidence to suggest metastatic disease to the brain. 3. Atrophy. Tanner Foy Jr., MD Administered Medications Medications (Trade) Dose Ordered Sig/Hilary Route PRN Reason Start Time Stop Time Status Last Admin Dose Admin Megestrol Acetate (Megace) 10 mg BID PO 11/15/16 21:00 11/15/16 21:48 Sodium Chloride (NS Flush) 2 ml BID IV FLUSH 11/15/16 21:00 11/15/16 21:52 Senna/Docusate Sodium (Alyx-Colace) 1 tab BID PO 11/15/16 21:00 11/15/16 21:48 Morphine Sulfate (Oramorph Sr) 30 mg Q12HR PO 11/15/16 21:00 11/15/16 21:48 Hydromorphone HCl (Dilaudid Pf Inj) 1 mg Q4H PRN IV PUSH BREAKTHROUGH PAIN 11/15/16 18:45 11/16/16 00:29 Oxycodone HCl (Roxicodone) 5 mg Q4H PRN PO PAIN GREATER THAN 5 11/15/16 19:00 11/15/16 21:49 Objective Remarks GENERAL: Older male sitting up in chair at bedside in no acute distress SKIN: Warm and dry. HEAD: Normocephalic. EYES: No injection or drainage. NECK: Supple, trachea midline. CARDIOVASCULAR: Regular rate and rhythm without murmurs. RESPIRATORY: Clear posteriorly. Breathing unlabored. GASTROINTESTINAL: Abdomen mildly protuberant. Right-sided abdomen tender to palpation. EXTREMITIES: No cyanosis, or edema. MUSCULOSKELETAL: Adequate muscle tone. NEUROLOGICAL: No obvious focal deficit. Awake, alert, and oriented x3. Assessment/Plan Problem List: (1) Liver cancer ICD Codes: C22.9 - Malignant neoplasm of liver, not specified as primary or secondary Status: Acute Plan: -- Patient with severe right upper quadrant pain likely related to liver lesions -- Hold sorafenib for now -- Consult radiation oncology for palliation of pain Hx/Workup: Patient has stage IV hepatocellular carcinoma recently diagnosed in June 2016. His hepatitis panel was negative. He also has metastatic disease to the lung as well as L5. He is currently being treated with sorafenib as an outpatient. (2) Right upper quadrant abdominal pain ICD Codes: R10.11 - Right upper quadrant pain Status: Acute Plan: -- Curently has 30mg Oramorph BID, 1mg Dilaudid and 5mg oxycodone prn. -- MRCP was negative; pain likely from liver lesions. (3) Pulmonary embolism ICD Codes: I26.99 - Other pulmonary embolism without acute cor pulmonale Status: Acute Plan: -- On once daily therapeutic Lovenox Assessment 71 y/o male with history of stage IV liver cancer admitted for uncontrolled pain Plan 1. MRCP negative 2. Continue current pain regimen 3. Await radiation XRT consultation. Will attempt to palliate pain symptoms with XRT. 4. Continue Lovenox. Attending Statement The exam, history, and the medical decision-making described in the above note were completed with the assistance of the mid-level provider. I reviewed and agree with the findings presented. I attest that I had a [id number] encounter with the patient on the same day, and personally performed and documented my assessment and findings in the medical record Problem Qualifiers (1) Liver cancer: Qualified Codes: C22.0 - Liver cell carcinoma (2) Pulmonary embolism: Qualified Codes: I26.99 - Other pulmonary embolism without acute cor pulmonale Mali Argueta Nov 16, 2016 11:25 Shilo Argueta MD Nov 16, 2016 23:57
[2016-11-16] MEDS: MEGESTROL ACETATE 40 MG TAB PO SCH ×2 (12:06→21:43)
[2016-11-16] MEDS: MORPHINE SULFATE 30 MG CONTROLLED RELEASE TAB PO SCH ×2 (12:08→21:43)
[2016-11-16] MEDS: LISINOPRIL 20 MG TAB PO SCH (12:08)
[2016-11-16] MEDS: SODIUM CHLORIDE 0.9% FLUSH 10 ML FLUSH IV FLUSH SCH ×2 (12:08→21:47)
[2016-11-16] MEDS: DOCUSATE SODIUM 50 MG/SENNA 8.6 MG TAB PO SCH ×2 (12:08→21:43)
[2016-11-16] MEDS: ENOXAPARIN SODIUM 150 MG/ML SYRINGE SQ SCH (12:10)
[2016-11-16 12:35] VITALS: BP 121/70; PULSE 104; RESP 20; TEMP 96.3; O2SAT 100
--- NOTE | 2016-11-16 13:04 | HHI.PR ---
Subjective Remarks Has some shortness of breath last night however the shortness of breath has resolved. Right upper abdomen pain has improved. Tolerating diet. Objective Vitals Vital Signs Date Time Temp Pulse Resp B/P (MAP) Pulse Ox O2 Delivery O2 Flow Rate FiO2 11/16/16 12:35 96.3 104 20 121/70 (87) 100 11/16/16 08:00 97.2 93 21 124/76 (92) 98 11/16/16 04:00 97.6 103 18 140/76 (97) 98 11/16/16 00:59 18 11/16/16 00:00 96.6 95 18 136/71 (92) 97 11/15/16 22:45 18 11/15/16 22:45 18 11/15/16 21:36 110 18 132/79 (96) 99 11/15/16 20:00 96.6 104 17 118/73 (88) 99 11/15/16 19:49 11/15/16 19:10 107 18 95/65 (75) 98 Room Air 11/15/16 17:00 84 20 116/62 (80) 11/15/16 13:34 98.6 102 22 105/67 (80) 99 11/15/16 13:29 103 24 79/56 (64) 98 Room Air I/O 11/15/16 11/15/16 11/15/16 11/16/16 11/16/16 11/16/16 07:00 15:00 23:00 07:00 15:00 23:00 # Voids 1 Result Diagram: 11/16/16 0540 11/16/16 0540 Imaging Last Impressions Cholangiopancreatography MRI 11/16/16 0000 Signed Impressions: Service Date/Time: October 08:11 - CONCLUSION: 1. Multiple malignant appearing masses in the liver and metastatic disease is suspected. 2. Probable benign lesion involving the anterior portion of the spleen could be followed. 3. Not mentioned above is masslike density in right lung discussed on the patient's prior CT angiogram of the chest. Antony Jasso MD Abdomen/Pelvis CT 11/15/16 [id number] Signed Impressions: Service Date/Time: Tuesday, November 15, 2016 17:40 - CONCLUSION: 1. Metastatic disease to the liver. 2. Patchy infiltrates in the visualized lungs. 3. L5 pars defects. Goyo Santillan MD CT Angiography [id number]/15/[id number] Signed Impressions: Service Date/Time: Tuesday, November 15, 2016 15:58 - CONCLUSION: 1. Right lower lobe pulmonary mass worrisome for primary bronchogenic carcinoma or metastatic lesion. 2. Acute pulmonary embolus on the right. This is relatively small volume thrombus. 3. Metastatic disease involving the liver. Tanner Foy Jr., MD Brain MRI 11/15/[id number] Signed Impressions: Service Date/Time: Tuesday, November 15, 2016 14:43 - CONCLUSION: 1. No acute intracranial abnormality. 2. No MRI evidence to suggest metastatic disease to the brain. 3. Atrophy. Tanner Foy Jr., MD Objective Remarks GENERAL: This is a well-nourished, well-developed patient, in no apparent distress. CARDIOVASCULAR: Regular rate and rhythm RESPIRATORY: Clear to auscultation. Breath sounds equal bilaterally. No wheezes , rales, or rhonchi. GASTROINTESTINAL: Abdomen soft, right upper quadrant tenderness, no rebound, nondistended. Normal active bowel sounds MUSCULOSKELETAL: Extremities without clubbing, cyanosis, or edema. NEURO: Alert & Oriented x4 to person, place, time, situation. Moves all ext x4 A/P Problem List: (1) Right upper quadrant abdominal pain ICD Code: R10.11 - Right upper quadrant pain Status: Acute (2) Liver cancer ICD Code: C22.9 - Malignant neoplasm of liver, not specified as primary or secondary Status: Acute (3) Pulmonary embolism ICD Code: I26.99 - Other pulmonary embolism without acute cor pulmonale Status: Acute (4) Metastasis ICD Code: C79.9 - Secondary malignant neoplasm of unspecified site Status: Acute (5) Diabetes mellitus type II, controlled ICD Code: E11.9 - Type 2 diabetes mellitus without complications Status: Chronic (6) Hypertension, essential ICD Code: I10 - Essential (primary) hypertension Status: Chronic Assessment and Plan is 71 yo, of [place] with history inclusive of Stage IV hepatocellular cancer (he is followed by Dr. Shilo Argueta, Oncology), hypertension , hyperlipidemia, coronary artery disease, heart disease, diabetes. Pt's primary care physician is Miguel Joel M.D. Mr. Almeida was diagnosed in June, with hepatocellular cancer and pulmonary embolism. At the time of his diagnosis he also had pulmonary emboli and was placed daily Lovenox injections. Since that time he has developed anorexia, cachexia, bone pain, and shortness of breath. Metastasis resulted in L5 damage. Mr. Almeida underwent radio frequency ablation and kyphoplasty on 10/24/16. He was admitted for intractable pain. He reports his shortness of breath comes and goes and reports his has not worsened overnight. He states that the pain has improved since admission and request for evaluation for discharge to home. Right upper quadrant intractable pain due to liver cancer with metastasis- much improved with IV narcotics however was able to wean when necessary narcotics after starting oral long-acting morphine. History of Pulmonary embolism- CTA showed pulmonary embolism and likely subacute. Continue anticoagulation per oncology, respiratory status has been stable. Patient has stable stats room air -Oncology consulted -manage pain with long-acting narcotics -continue Lovenox 150 mg sq daily, defer to oncology about dosing and to determine if a different anticoagulation needs to be prescribed. Hypertension -Continue lisinopril 20 mg daily Diabetes mellitus type II -finger sticks q ac and HS -sliding scale novolog, low dose regimen. -ADA 1800 calories consistent carbohydrate diet Discharge Planning Discharge planning after clearance with oncology and when pain better controlled. Problem Qualifiers (1) Liver cancer: Qualified Codes: C22.0 - Liver cell carcinoma (2) Pulmonary embolism: Qualified Codes: I26.99 - Other pulmonary embolism without acute cor pulmonale (3) Metastasis: Qualified Codes: C78.00 - Secondary malignant neoplasm of unspecified lung (4) Diabetes mellitus type II, controlled: Qualified Codes: E11.9 - Type 2 diabetes mellitus without complications India Mejias MD Nov 16, 2016 13:04
[2016-11-16] MEDS ORDERED: MORP1TAB25 PO (13:08)
[2016-11-16 14:49] VITALS: BP 105/65
[2016-11-16 20:00] VITALS: BP 102/70; PULSE 113; RESP 18; TEMP 97.5; O2SAT 98
[2016-11-17] VITALS (7 sets, daily range): BP systolic 77–130; BP diastolic 44–79; PULSE 96–119; RESP 18–19; TEMP 97.7–99.1; O2SAT 95–99
[2016-11-17] MEDS: INSULIN ASPART SUPPLEMENTAL SCALE SQ SCH ×4 (06:47→21:00)
--- NOTE | 2016-11-17 06:55 | MB ---
cc: NIC ZHOU DATE OF CONSULTATION 11/16/2016 DATE OF 1945 REASON FOR CONSULTATION Patient with a history of metastatic hepatocellular carcinoma admitted with intractable pain, headaches, and shortness of breath. HISTORY OF PRESENT ILLNESS Mr. Almeida is a 71-year-old male who has a diagnosis of advanced stage hepatocellular carcinoma. He was diagnosed in June of 2016. He is hepatitis B and hepatitis C negative. He was found to have a large liver mass. CT-guided my biopsy confirmed the diagnosis. His alpha fetoprotein, ASP levels were in the 7000 range upon diagnosis. PET scan at diagnosis showed a large infiltrative mass in the right lobe of the liver with an SUV of 8. There was also a large right paratracheal mediastinal node which was 1.8 cm. This was hypermetabolic. The patient was not a candidate for surgery or transplant. He received localized treatment to the liver. He was started on Sorafenib. He presented to the medical oncology clinic with complaints of excruciating right upper quadrant pain. There was significant guarding in the right upper abdomen. The patient was visibly in pain. He also complained of headaches and lightheadedness. He stated that over the past 48 hours, he noticed an improvement in his overall symptoms, but acutely develop pain overnight. The patient has known metastatic disease to the L5 vertebral spine. The patient was sent to the emergency room from the clinic. He was given Dilaudid 2 mg IV and antiemetics prior to being sent to the emergency room. In the ER, he underwent CT angiogram. This did not show any pulmonary embolism. There was a pulmonary embolus on the right which had existed before. There was a right lower lobe pulmonary mass was worrisome for metastatic disease. The patient also had a CT of the abdomen and pelvis and an MRI of the brain. The CT of the abdomen and pelvis showed multiple ill-defined masses involving the liver and with a confluent heterogeneous hyperdense mass in the right lower lobe. MRI of the brain did not show any intracranial abnormality. The patient at this time endorses significant improvement in his pain. He has been getting pain medications since his admission. There is a dull aching pain in the right upper quadrant. CT of the abdomen showed some gallbladder thickening. REVIEW OF SYSTEMS A comprehensive 14-point review of systems was completed which is negative except as described in the HPI. PAST MEDICAL HISTORY 1. Advanced hepatocellular carcinoma 2. Coronary artery disease 3. Diabetes 4. Hyperlipidemia 5. Hypertension 6. Osteoarthritis PAST SURGICAL HISTORY 1. L5 radiofrequency ablation and kyphoplasty on 10/24/2016. 2. History of localized treatment to the primary liver lesion. 3. Stent placement in 2007. MEDICATIONS 1. Morphine extended-release 15 mg p.o. daily 2. Oxycodone 5 mg p.o. 4-6 hours as needed 3. Megace 20 mg tablet p.o. b.i.d. 4. Lovenox 150 mg subcu daily 5. Lisinopril 20 mg p.o. daily 6. Metformin 500 mg p.o. b.i.d. with meals ALLERGIES NO KNOWN DRUG ALLERGIES. PHYSICAL EXAM VITAL SIGNS: Blood pressure is 102/70, pulse is in the 100s, temperature is 97.5, O2 sats are 98% on room air. GENERAL: Acutely ill patient in no apparent distress. HEENT: Pupils are equal, round, reactive to light. EOMI. No oral thrush. No oral lesions. NECK: Supple. No JVD, no bruits. No lymphadenopathy. CHEST: Clear to auscultation bilaterally. CARDIAC: Tachycardiac, S1, S2. ABDOMEN: Tender in the right upper quadrant. Bowel sounds are present. EXTREMITIES: Without any edema, erythema or cyanosis. SKIN: Without any petechiae lesion or bruises. NEUROLOGIC: No focal deficits. PSYCHIATRIC: Mood and affect is appropriate. LABORATORY DATA WBC 11.3, hemoglobin 11.4, platelet count 286. Serum chemistries show sodium 134, potassium 4.4, chloride 105, CO2 21.4, anion gap eight, BUN 27, creatinine 0.7, GFR is 112, calcium is 7.4, corrected calcium is 8.2, total protein is 5.6, albumin is 2.0. Coags PT 11.6, INR 1.0, PTT 36. IMAGING STUDIES Reviewed in the EMR. ASSESSMENT/PLAN This is a 71-year-old male with a diagnosis of advanced stage liver cancer who was admitted to the hospital with intractable abdominal pain. 1. Stage IV hepatocellular carcinoma. He has significant burden of disease in the liver. I suspect that is the tumor is impinging/infiltrating through the capsule causing the pain. We will increase his long-acting morphine to 30 mg p.o. b.i.d. I am also increasing the Oxycodone to 10 mg p.o. q.4-6 h. I have discussed this case with Dr. Mcclain in radiation oncology. We believe that there is some utility of palliative radiation treatments to the liver to control intractable pain in this patient. I will obtain MRCP of the biliary tract to make sure that there is not a gallbladder stone. His gallbladder seemed to be thickened on the CT scan. He will continue taking the sorafenib during his admission. 2. Intractable pain. PLAN 1. As stated above. 2. Severe malnutrition with an albumin of 2, dietitian consult. Encourage oral intake, supplement diet with Ensure or Boost. Thank you for allowing me to participate in the care of this patient. I will continue to follow this patient along. MD RACHEL Rodriguez/BRANDEN /11:43 PM /6:36 AM
--- NOTE | 2016-11-17 08:25 | MB ---
cc: FESTUS SHAFFER M.D., AWAIS DATE OF CONSULTATION 11/16/2016 DATE OF 1945 REASON FOR CONSULTATION This patient is being seen in consultation at the request of Dr. Argueta because of intractable pain thought to be related to his metastatic hepatocellular carcinoma. BRIEF HISTORY This is a 71-year-old gentleman who has a history of advanced hepatocellular carcinoma initially diagnosed in June of this year. He has a history of hepatitis B and hepatitis C negative. He has a very large liver mass and presented with an alpha-fetoprotein of 7000. He is known to have a right paratracheal mediastinal lymph node which is hypermetabolic and he has been treated for metastases to his L5 vertebra with a kyphoplasty and local treatment and diagnostic radiology. Unfortunately he has come in the hospital with somewhat acute right upper quadrant pain. He is a difficult historian having poor control of Spanish, but it appears his pain has come and gone over several time periods of pain had become severe and then will lighten up for a short time and then become severe again. He was admitted to the hospital for pain control. This gentleman has had treatment to his L5 vertebrae with kyphoplasty and L5 radiofrequency. It would appear that he has also had a Y-90 treatment to his liver delivered in [place] in June or July of this year. While in the hospital, he has undergone a series of tests including a cholangiopancreatography MRI. This revealed multiple malignant appearing masses in the liver, the largest being in the right lobe measuring 11 cm in size. Additionally, he has undergone abdominal and pelvic CT scan which again shows metastatic disease to the liver and a defect of L5 consistent with his previous treatment. A brain MRI showed no evidence of metastatic disease and a CT angiogram revealed right lower lobe pulmonary mass worrisome for bronchogenic carcinoma or metastatic disease. There is also an acute pulmonary embolus on the right which was considered a small volume thrombus. This gentleman is being treated by Dr. Argueta with sorafenib and it is my understanding that this is continuing. PAST MEDICAL AND SURGICAL HISTORY Includes: 1. Hepatocellular carcinoma 2. Coronary artery disease 3. Diabetes 4. Hyperlipidemia 5. Hypertension 6. Osteoarthritis 7. L5 radiofrequency ablation and kyphoplasty in October 2009. 8. History of Y90 treatment to the liver and a stent placement in 2007. MEDICATIONS Have included: 1. Morphine 2. Oxycodone 3. Megace 4. Lovenox 5. Lisinopril 6. Metformin ALLERGIES None known. PHYSICAL EXAM On exam, this gentleman appears to have periods of intermittent Pain. VITAL SIGNS: His vital signs have been stable with a blood pressure of 102/70. He is afebrile. O2 sat is 98%. HEAD, EYES, EARS, NOSE, AND THROAT: There was no jaundice. He had full EOMs. Oral cavity is normal. There is no adenopathy in his head and neck. LUNGS: His lung sun were clear of effusion. HEART: His heart sounds were normal without murmurs, rubs or bruits. ABDOMEN: Exam reveals tenderness in the right upper quadrant with a clinically enlarged liver, although he is difficult to examine. There is no ascites. EXTREMITIES: There is no ankle edema. I have reviewed with this gentleman and his son his previous treatments. It would appear clear that he has had previous treatment to his liver with Y90 and it is difficult to know how successful this may or may not have been. There is longstanding literature for use of external beam radiation treatment and palliation of liver pain. Fortunately liver pain is not frequent so we do not use this on a routine basis. I believe considering the significant pain that he has and the poor response he has had to date that a short course of palliative radiation treatment to his liver would be reasonable. I have reviewed his scans and he has an extensive 10-11 cm lesion in the right lobe and although there is a small amount of disease in his other lobes, I think the right lobe is the primary culprit and we can deliver this treatment primarily sparing most of his left lobe and hopefully obtain some pain control. There is a risk to his liver. His liver does not tolerate high doses of radiation and so the radiation dose will be modified because of his previous Y90 treatment. I have discussed this with the gentleman and his son. They would like to proceed with treatment and so it is my intention to have his treatment started on Sunday. He will receive in the order of six to eight treatments and this will be determined at the time of dosimetry calculations. Thank you for asking us see this patient. MD BRYN Olivera/BRANDEN /7:41 AM /8:07 AM
[2016-11-17] MEDS: LISINOPRIL 20 MG TAB PO SCH (09:00)
[2016-11-17] MEDS: MEGESTROL ACETATE 40 MG TAB PO SCH ×2 (09:55→21:58)
[2016-11-17] MEDS: SODIUM CHLORIDE 0.9% FLUSH 10 ML FLUSH IV FLUSH SCH ×2 (09:56→21:59)
[2016-11-17] MEDS: DOCUSATE SODIUM 50 MG/SENNA 8.6 MG TAB PO SCH ×2 (09:56→21:59)
[2016-11-17] MEDS: MORPHINE SULFATE 30 MG CONTROLLED RELEASE TAB PO SCH ×2 (09:56→21:59)
[2016-11-17] MEDS: ENOXAPARIN SODIUM 150 MG/ML SYRINGE SQ SCH (09:57)
[2016-11-17] MEDS: SODIUM CHLOR 0.9% 1000 ML INJ 1,000 ML IV SCH ×2 (12:56→23:00)
[2016-11-17] MEDS ORDERED: LEVOFLOXACIN 750 MG PREMIX INJ 150 ML IV SCH (13:00)
--- NOTE | 2016-11-17 14:45 | PD.ONC.PN ---
Subjective Subjective Remarks "My pain is about the same" Reports pain is worse with taking a deep breath on the R side. Objective Data Date Time Temp Pulse Resp B/P (MAP) Pulse Ox O2 Delivery O2 Flow Rate FiO2 11/17/16 12:00 98.0 119 18 99/54 (69) 98 11/17/16 09:15 96 88/66 (73) 11/17/16 08:00 97.7 111 18 84/44 (57) 95 108/56 (73) 11/17/16 04:00 98.0 97 18 112/72 (85) 97 11/17/16 00:00 99.1 101 18 94/58 (70) 99 11/16/16 22:40 16 11/16/16 20:00 97.5 113 18 102/70 (81) 98 11/16/16 14:49 105/65 (78) 11/17/16 11/17/16 11/17/16 06:59 14:59 22:59 Intake Total 120 ml Balance 120 ml Result Diagram: 11/16/16 0540 11/16/16 0540 Laboratory Results Laboratory Tests Test 11/17/16 06:52 Tumor Marker Alpha Fetoprotein 1748.4 NG/ML Administered Medications Medications (Trade) Dose Ordered Sig/Hilary Route PRN Reason Start Time Stop Time Status Last Admin Dose Admin Megestrol Acetate (Megace) 10 mg BID PO 11/15/16 21:00 11/17/16 09:55 Sodium Chloride (NS Flush) 2 ml BID IV FLUSH 11/15/16 21:00 11/17/16 09:56 Senna/Docusate Sodium (Alyx-Colace) 1 tab BID PO 11/15/16 21:00 11/17/16 09:56 Morphine Sulfate (Oramorph Sr) 30 mg Q12HR PO 11/15/16 21:00 11/17/16 09:56 Hydromorphone HCl (Dilaudid Pf Inj) 1 mg Q4H PRN IV PUSH BREAKTHROUGH PAIN 11/15/16 18:45 11/16/16 00:29 Enoxaparin Sodium (Lovenox Inj) 150 mg DAILY SQ 11/16/16 09:00 11/17/16 09:57 Oxycodone HCl (Roxicodone) 10 mg Q4H PRN PO PAIN >5 11/16/16 17:45 11/17/16 13:19 Sodium Chloride 1,000 ml @ 100 mls/hr Q10H IV 11/17/16 13:00 11/17/16 12:56 Levofloxacin/ Dextrose 150 ml @ 100 mls/hr Q24H IV 11/17/16 13:00 11/17/16 12:56 Objective Remarks GENERAL: Older male sitting up on side of bed eating peanuts in no distress. SKIN: Warm and dry. HEAD: Normocephalic. EYES: No injection or drainage. NECK: Supple, trachea midline. CARDIOVASCULAR: Regular rate and rhythm without murmurs. RESPIRATORY: Clear posteriorly. Breathing unlabored. GASTROINTESTINAL: Abdomen mildly protuberant. Right-sided abdomen tender to palpation. EXTREMITIES: No cyanosis, or edema. MUSCULOSKELETAL: Adequate muscle tone. NEUROLOGICAL: No obvious focal deficit. Awake, alert, and oriented x3. Assessment/Plan Problem List: (1) Liver cancer ICD Codes: C22.9 - Malignant neoplasm of liver, not specified as primary or secondary Status: Acute Plan: -- Patient with severe right upper quadrant pain likely related to liver lesions -- Palliative XRT to begin on Sunday, 12pm. Hx/Workup: Patient has stage IV hepatocellular carcinoma recently diagnosed in June 2016. His hepatitis panel was negative. He also has metastatic disease to the lung as well as L5. He is currently being treated with sorafenib as an outpatient. (2) Right upper quadrant abdominal pain ICD Codes: R10.11 - Right upper quadrant pain Status: Acute Plan: -- Curently has 30mg Oramorph BID, 1mg Dilaudid and 5mg oxycodone prn. -- MRCP was negative; pain likely from liver lesions. (3) Pulmonary embolism ICD Codes: I26.99 - Other pulmonary embolism without acute cor pulmonale Status: Acute Plan: -- On once daily therapeutic Lovenox Assessment 71 y/o male with history of stage IV liver cancer admitted for uncontrolled pain Plan 1. OK for discharge from oncology standpoint. 2. Will ensure that pt has enough long acting Oramorph prior to discharge. 3. Followup for palliative XRT on Sunday. (Pt's appt is 12pm) Attending Statement The exam, history, and the medical decision-making described in the above note were completed with the assistance of the mid-level provider. I reviewed and agree with the findings presented. I attest that I had a [id number] encounter with the patient on the same day, and personally performed and documented my assessment and findings in the medical record Problem Qualifiers (1) Liver cancer: Qualified Codes: C22.0 - Liver cell carcinoma (2) Pulmonary embolism: Qualified Codes: I26.99 - Other pulmonary embolism without acute cor pulmonale Mali Argueta Nov 17, 2016 14:45 Shilo Argueta MD Nov 17, 2016 22:08
[2016-11-17 15:37] LABS: BASOPHIL % 0.1 % (0.0-2.0); EOSINOPHIL % 0.2 % (0.0-4.0); HEMATOCRIT 33.9 % (39.0-51.0); LYMPH % 5.6 % (9.0-44.0); LYMPHOCYTE # 0.7 TH/MM3 (1.0-4.8); MEAN CELL VOLUME 92.4 FL (80.0-100.0); MEAN CORPUSCULAR HEMOGLOBIN 29.6 PG (27.0-34.0); MONO % 3.4 % (0.0-8.0); NEUT % 90.7 % (16.0-70.0); PLATELET COUNT 239 TH/MM3 (150-450); RED BLOOD COUNT 3.66 MIL/MM3 (4.50-5.90); WHITE BLOOD COUNT 12.1 TH/MM3 (4.0-11.0)
[2016-11-17 15:54] LABS: HEMO FLAGS AUTO DIFF
[2016-11-17 16:41] LABS: SCAN/DIFF AUTO DIFF CONFIRMED
--- NOTE | 2016-11-17 17:15 | HHI.PR ---
Subjective Remarks Patient complains some chills dry cough. Pain better controlled morphine. States occasionally should he does have some dysuria he is tolerating his diet. No diarrhea and actually complains of constipation. Objective Vitals Vital Signs Date Time Temp Pulse Resp B/P (MAP) Pulse Ox O2 Delivery O2 Flow Rate FiO2 11/17/16 16:00 98.1 113 18 77/53 (61) 97 82/51 (61) 11/17/16 12:00 98.0 119 18 99/54 (69) 98 11/17/16 09:15 96 88/66 (73) 11/17/16 08:00 97.7 111 18 84/44 (57) 95 108/56 (73) 11/17/16 04:00 98.0 97 18 112/72 (85) 97 11/17/16 00:00 99.1 101 18 94/58 (70) 99 11/16/16 22:40 16 11/16/16 20:00 97.5 113 18 102/70 (81) 98 I/O 11/16/16 11/16/16 11/16/16 11/17/16 11/17/16 11/17/16 06:59 14:59 22:59 06:59 14:59 22:59 Intake Total 240 ml 360 ml 120 ml 840 ml Balance 240 ml 360 ml 120 ml 840 ml Intake Oral 240 ml 360 ml 120 ml 840 ml # Voids 1 1 3 2 # Bowel Movements 1 0 Result Diagram: 11/17/16 1508 11/17/16 1508 Other Results Microbiology Date/Time Source Procedure Growth Status 11/17/16 15:08 Blood Peripheral Aerobic Blood Culture Pending Received 11/17/16 15:08 Blood Peripheral Anaerobic Blood Culture Pending Received Objective Remarks GENERAL: This is a well-nourished, well-developed patient, in no apparent distress. CARDIOVASCULAR: Regular rate and rhythm RESPIRATORY: Few right sided basilar crackle GASTROINTESTINAL: Abdomen soft, mild right upper quadrant tenderness, no rebound , nondistended. Normal active bowel sounds MUSCULOSKELETAL: Extremities without clubbing, cyanosis, or edema. NEURO: Alert & Oriented x4 to person, place, time, situation. Moves all ext x4 A/P Problem List: (1) Right upper quadrant abdominal pain ICD Code: R10.11 - Right upper quadrant pain Status: Acute (2) Liver cancer ICD Code: C22.9 - Malignant neoplasm of liver, not specified as primary or secondary Status: Acute (3) Pulmonary embolism ICD Code: I26.99 - Other pulmonary embolism without acute cor pulmonale Status: Acute (4) Metastasis ICD Code: C79.9 - Secondary malignant neoplasm of unspecified site Status: Acute (5) Diabetes mellitus type II, controlled ICD Code: E11.9 - Type 2 diabetes mellitus without complications Status: Chronic (6) Hypertension, essential ICD Code: I10 - Essential (primary) hypertension Status: Chronic Assessment and Plan is 71 yo, of [place] with history inclusive of Stage IV hepatocellular cancer (he is followed by Dr. Shilo Argueta, Oncology), hypertension , hyperlipidemia, coronary artery disease, heart disease, diabetes. Pt's primary care physician is Miguel Joel M.D. Mr. Almeida was diagnosed in June, with hepatocellular cancer and pulmonary embolism. At the time of his diagnosis he also had pulmonary emboli and was placed daily Lovenox injections. Since that time he has developed anorexia, cachexia, bone pain, and shortness of breath. Metastasis resulted in L5 damage. Mr. Almeida underwent radio frequency ablation and kyphoplasty on 10/24/16. He was admitted for intractable pain. He reports his shortness of breath comes and goes and reports his has not worsened overnight. Hypotension- rule out early infection or sepsis versus, narcotic induced hypotension vs bleed. IVF hydration given ;discontinue antihypertensive lisinopril. Sepsis protocol workup initiated however lactic acid may not be accurate due to his history of metastatic disease. He had bandemia on his CBC however per shale planer operator this pattern can also be seen with history metastatic cancer. All obtain chest x-ray to see Christina changes along with a urinalysis. IV Levaquin given with blood cultures. If he remains stable overnight can consider discharge per shale planer operator/oncologist. Right upper quadrant intractable pain due to liver cancer with metastasis- much improved with IV narcotics however was able to wean when necessary narcotics after starting oral long-acting morphine. History of Pulmonary embolism- CTA showed pulmonary embolism and likely subacute. Continue anticoagulation per oncology, respiratory status has been stable. Patient has stable stats room air -Oncology; , feels that he is at baseline. -manage pain with long-acting narcotics -continue Lovenox 150 mg sq daily, defer to oncology about dosing and to determine if a different anticoagulation needs to be prescribed. Hypertension now hypotensive only to rule out underlying infection versus bleed versus narcotic induce hypotension Discontinue lisinopril 20 mg daily Diabetes mellitus type II -finger sticks q ac and HS -sliding scale novolog, low dose regimen. -ADA 1800 calories consistent carbohydrate diet Discharge Planning Hematology oncology has clear patient however due to hypotension will need to continue monitoring and workup. Problem Qualifiers (1) Liver cancer: Qualified Codes: C22.0 - Liver cell carcinoma (2) Pulmonary embolism: Qualified Codes: I26.99 - Other pulmonary embolism without acute cor pulmonale (3) Metastasis: Qualified Codes: C78.00 - Secondary malignant neoplasm of unspecified lung (4) Diabetes mellitus type II, controlled: Qualified Codes: E11.9 - Type 2 diabetes mellitus without complications India Mejias MD Nov 17, 2016 17:15
[2016-11-17 17:28] LABS: LACTIC ACID GHOST NOT REPORTABLE
--- NOTE | 2016-11-17 20:57 | RADRPT ---
EXAM DATE/TIME: 11/17/2016 20:32 [facility] COMPARISON: CT PULMONARY ANGIOGRAM, November 15, 2016, 15:58. INDICATIONS : Shortness of breath MEDICAL HISTORY : Liver cancer SURGICAL HISTORY : None. ENCOUNTER: Initial ACUITY: 1 day PAIN SCORE: 0/10 LOCATION: Bilateral chest FINDINGS: There is an irregular mass again seen in the right lower lobe. No acute pneumonia seen. No pleural ef fusion or pneumothorax. Heart size stable, within normal limits. CONCLUSION: Right lower lobe mass again noted. No acute pneumonia seen. Cody Morales MD on November 17, 2016 at 20:54 Board Certified Radiologist. This report was verified electronically.
[2016-11-18] VITALS: BP 106/58; PULSE 104; RESP 17; TEMP 98.3; O2SAT 97
[2016-11-18 04:00] VITALS: BP 113/71; PULSE 95; RESP 17; TEMP 97.9; O2SAT 99
[2016-11-18] MEDS: INSULIN ASPART SUPPLEMENTAL SCALE SQ SCH (07:00)
[2016-11-18 08:00] VITALS: BP 133/84; PULSE 98; RESP 16; TEMP 97.7; O2SAT 98
[2016-11-18] MEDS: MORPHINE SULFATE 30 MG CONTROLLED RELEASE TAB PO SCH (08:20)
[2016-11-18] MEDS: MEGESTROL ACETATE 40 MG TAB PO SCH (08:21)
[2016-11-18] MEDS: ENOXAPARIN SODIUM 150 MG/ML SYRINGE SQ SCH (08:22)
[2016-11-18] MEDS: SODIUM CHLORIDE 0.9% FLUSH 10 ML FLUSH IV FLUSH SCH (08:30)
[2016-11-18] MEDS: DOCUSATE SODIUM 50 MG/SENNA 8.6 MG TAB PO SCH (08:30)
--- NOTE | 2016-11-18 08:54 | PD.ONC.PN ---
Subjective Subjective Remarks Pt sitting up in room with visitor present. Reports his pain on average is between 2-3. Hoping to go home today. Objective Data Date Time Temp Pulse Resp B/P (MAP) Pulse Ox O2 Delivery O2 Flow Rate FiO2 11/18/16 08:00 97.7 98 16 133/84 (100) 98 11/18/16 04:00 97.9 95 17 113/71 (85) 99 11/18/16 00:00 98.3 104 17 106/58 (74) 97 11/17/16 20:00 98.3 98 19 130/79 (96) 98 11/17/16 16:00 98.1 113 18 77/53 (61) 97 82/51 (61) 11/17/16 12:00 98.0 119 18 99/54 (69) 98 11/17/16 09:15 96 88/66 (73) 11/18/16 11/18/16 11/18/16 07:00 15:00 23:00 Intake Total 120 ml Output Total 220 ml Balance -100 ml Result Diagram: 11/17/16 1508 11/17/16 1508 Laboratory Results Laboratory Tests Test 11/17/16 15:08 11/17/16 18:10 White Blood Count 12.1 TH/MM3 Red Blood Count 3.66 MIL/MM3 Hemoglobin 10.8 GM/DL Hematocrit 33.9 % Mean Corpuscular Volume 92.4 FL Mean Corpuscular Hemoglobin 29.6 PG Mean Corpuscular Hemoglobin Concent 32.0 % Red Cell Distribution Width 22.0 % Platelet Count 239 TH/MM3 Mean Platelet Volume 7.1 FL Neutrophils (%) (Auto) 90.7 % Lymphocytes (%) (Auto) 5.6 % Monocytes (%) (Auto) 3.4 % Eosinophils (%) (Auto) 0.2 % Basophils (%) (Auto) 0.1 % Neutrophils # (Auto) 11.0 TH/MM3 Lymphocytes # (Auto) 0.7 TH/MM3 Monocytes # (Auto) 0.4 TH/MM3 Eosinophils # (Auto) 0.0 TH/MM3 Basophils # (Auto) 0.0 TH/MM3 CBC Comment AUTO DIFF Differential Comment AUTO DIFF CONFIRMED Creatinine 0.70 MG/DL Estimat Glomerular Filtration Rate 112 ML/MIN Lactic Acid Level 2.2 mmol/L 2.2 mmol/L Culture Results Microbiology Date/Time Source Procedure Growth Status 11/17/16 16:52 Blood Peripheral Aerobic Blood Culture Pending Received 11/17/16 16:52 Blood Peripheral Anaerobic Blood Culture Pending Received 11/17/16 15:08 Blood Peripheral Aerobic Blood Culture Pending Received 11/17/16 15:08 Blood Peripheral Anaerobic Blood Culture Pending Received Administered Medications Medications (Trade) Dose Ordered Sig/Hilary Route PRN Reason Start Time Stop Time Status Last Admin Dose Admin Megestrol Acetate (Megace) 10 mg BID PO 11/15/16 21:00 11/18/16 08:21 Sodium Chloride (NS Flush) 2 ml BID IV FLUSH 11/15/16 21:00 11/18/16 08:30 Morphine Sulfate (Oramorph Sr) 30 mg Q12HR PO 11/15/16 21:00 11/18/16 08:20 Hydromorphone HCl (Dilaudid Pf Inj) 1 mg Q4H PRN IV PUSH BREAKTHROUGH PAIN 11/15/16 18:45 11/16/16 00:29 Enoxaparin Sodium (Lovenox Inj) 150 mg DAILY SQ 11/16/16 09:00 11/18/16 08:22 Oxycodone HCl (Roxicodone) 10 mg Q4H PRN PO PAIN >5 11/16/16 17:45 11/17/16 13:19 Sodium Chloride 1,000 ml @ 100 mls/hr Q10H IV 11/17/16 13:00 11/17/16 23:00 Levofloxacin/ Dextrose 150 ml @ 100 mls/hr Q24H IV 11/17/16 13:00 11/17/16 12:56 Senna/Docusate Sodium (Alyx-Colace) 1 tab BID PO 11/17/16 21:00 11/17/16 21:59 Objective Remarks GENERAL: Older male sitting up in chair at bedside in no acute distress. SKIN: Warm and dry. HEAD: Normocephalic. EYES: No injection or drainage. NECK: Supple, trachea midline. CARDIOVASCULAR: Regular rate and rhythm without murmurs. RESPIRATORY: Clear posteriorly. Breathing unlabored. GASTROINTESTINAL: Abdomen mildly protuberant. Right-sided abdomen tender to palpation. EXTREMITIES: No cyanosis, or edema. MUSCULOSKELETAL: Adequate muscle tone. NEUROLOGICAL: No obvious focal deficit. Awake, alert, and oriented x3. Assessment/Plan Problem List: (1) Liver cancer ICD Codes: C22.9 - Malignant neoplasm of liver, not specified as primary or secondary Status: Acute Plan: -- Patient with severe right upper quadrant pain likely related to liver lesions -- Palliative XRT to begin on Sunday, 12pm. Hx/Workup: Patient has stage IV hepatocellular carcinoma recently diagnosed in June 2016. His hepatitis panel was negative. He also has metastatic disease to the lung as well as L5. He is currently being treated with sorafenib as an outpatient. (2) Right upper quadrant abdominal pain ICD Codes: R10.11 - Right upper quadrant pain Status: Acute Plan: -- Curently has 30mg Oramorph BID, 1mg Dilaudid and 5mg oxycodone prn. -- MRCP was negative; pain likely from liver lesions. (3) Pulmonary embolism ICD Codes: I26.99 - Other pulmonary embolism without acute cor pulmonale Status: Acute Plan: -- On once daily therapeutic Lovenox Assessment 71 y/o male with history of stage IV liver cancer admitted for uncontrolled pain Plan 1. Pain much better controlled; OK for discharge from oncology standpoint. 2. Pt to keep appt with XRT on Sunday at 12pm. Problem Qualifiers (1) Liver cancer: Qualified Codes: C22.0 - Liver cell carcinoma (2) Pulmonary embolism: Qualified Codes: I26.99 - Other pulmonary embolism without acute cor pulmonale Mali Argueta Nov 18, 2016 08:54
[2016-11-18] MEDS ORDERED: SENN1TAB PO (09:09)
--- NOTE | 2016-11-18 09:13 | HHI.DCPOC ---
Discharge Care Plan Diagnosis: (1) Pain (2) Hypotension (3) Metastasis (4) Diabetes mellitus type II, controlled (5) Pulmonary embolism (6) Right upper quadrant abdominal pain (7) Liver cancer Goals to Promote Your Health * To prevent worsening of your condition and complications * To maintain your health at the optimal level Directions to Meet Your Goals Take your medications as prescribed Follow your dietary instruction Follow activity as directed Keep your appointments as scheduled Take your immunizations and boosters as scheduled If your symptoms worsen call your PCP, if no PCP go to Urgent Care Center or Emergency Room Smoking is Dangerous to Your Health. Avoid second hand smoke Call the 24-hour hour crisis hotline for domestic abuse at Marichuy Escobar MD Nov 18, 2016 09:13
--- NOTE | 2016-11-18 09:13 | HHI.DS ---
Discharge Summary Admission Date Nov 15, 2016 at 18:09 Discharge Date: Nov 18, 2016 Admitting Diagnosis cancer pain (1) Right upper quadrant abdominal pain ICD Code: R10.11 - Right upper quadrant pain Diagnosis: Principal Status: Acute (2) Liver cancer ICD Code: C22.9 - Malignant neoplasm of liver, not specified as primary or secondary Diagnosis: Principal Status: Acute (3) Pulmonary embolism ICD Code: I26.99 - Other pulmonary embolism without acute cor pulmonale Diagnosis: Secondary Status: Acute (4) Metastasis ICD Code: C79.9 - Secondary malignant neoplasm of unspecified site Diagnosis: Principal Status: Acute (5) Diabetes mellitus type II, controlled ICD Code: E11.9 - Type 2 diabetes mellitus without complications Diagnosis: Secondary Status: Chronic (6) Hypertension, essential ICD Code: I10 - Essential (primary) hypertension Diagnosis: Secondary Status: Chronic Procedures see hospital course Brief History - From Admission is 71 yo, of [place] with history inclusive of Stage IV hepatocellular cancer (he is followed by Dr. Shilo Argueta, Oncology), hypertension , hyperlipidemia, coronary artery disease, heart disease, diabetes. 's primary care physician is Miguel Joel M.D. Mr. Almeida was diagnosed in June, with hepatocellular cancer. At the time of his diagnosis he also had pulmonary emboli and was placed daily Lovenox injections. Since that time he has developed anorexia, cachexia, bone pain, and shortness of breath. Metastasis resulted in L5 damage. Mr. Almeida underwent radio frequency ablation and kyphoplasty on 10/24/16. Mr. Almeida presents to [facility] due to uncontrolled abdominal pain. He stated the pain worsened last evening and was "moving all over here (upper right quadrant) last night. He also stated he becomes short of breath "when I take even a few steps." He stated he came to [facility] ED for management and evaluation of his condition. Mr. Almeida denied fever, chills, cough, cardiac chest pain, headache , visual disturbance, NVD. He did report having a heart murmur and underwent an echocardiogram in his PCP's office last Sunday. He stated those results were negative. Mr. Almeida also reported he experiences pain "when I take a deep breath." A 10 point ROS was conducted and, except as noted above was negative. ED staff administered pain medication which Mr. Almeida stated "started to help very quickly." MRI of the brain was negative for metastases. CTA indicated the presence of a mass in the right lower lobe of the lung. Pulmonary embolus was noted in the right lower lobe of the lung. Liver metastases was noted. Pelvic CT indicated liver metastases, patchy infiltrates to the visualized lobes, and L5 pars defects. Mr. Almeida is being admitted to address his presenting issues. CBC/BMP: 11/17/16 1508 11/17/16 1508 Significant Findings Laboratory Tests Test 11/15/16 13:45 11/16/16 05:40 11/17/16 06:52 11/17/16 15:08 White Blood Count 11.2 TH/MM3 (4.0-11.0) 11.3 TH/MM3 (4.0-11.0) 12.1 TH/MM3 (4.0-11.0) Red Blood Count 4.09 MIL/MM3 (4.50-5.90) 3.72 MIL/MM3 (4.50-5.90) 3.66 MIL/MM3 (4.50-5.90) Hemoglobin 11.9 GM/DL (13.0-17.0) 11.4 GM/DL (13.0-17.0) 10.8 GM/DL (13.0-17.0) Hematocrit 37.9 % (39.0-51.0) 34.4 % (39.0-51.0) 33.9 % (39.0-51.0) Mean Corpuscular Hemoglobin Concent 31.4 % (32.0-36.0) Red Cell Distribution Width 21.8 % (11.6-17.2) 22.1 % (11.6-17.2) 22.0 % (11.6-17.2) Neutrophils (%) (Auto) 83.4 % (16.0-70.0) 89.4 % (16.0-70.0) 90.7 % (16.0-70.0) Neutrophils # (Auto) 9.4 TH/MM3 (1.8-7.7) 10.1 TH/MM3 (1.8-7.7) 11.0 TH/MM3 (1.8-7.7) Neutrophils % (Manual) 73 % (16-70) 85 % (16-70) Band Neutrophils % 14 % (0-6) 7 % (0-6) Neutrophils # (Manual) 9.9 TH/MM3 (1.8-7.7) 10.6 TH/MM3 (1.8-7.7) Nucleated Red Blood Cells 1 /100 WBC (0-0) 1 /100 WBC (0-0) Platelet Estimate HIGH (NORMAL) Activated Partial Thromboplast Time 36.0 SEC (24.3-30.1) Blood Urea Nitrogen 28 MG/DL (7-18) 27 MG/DL (7-18) Total Protein 6.3 GM/DL (6.4-8.2) 5.6 GM/DL (6.4-8.2) Albumin 2.0 GM/DL (3.4-5.0) Calcium Level 7.6 MG/DL (8.5-10.1) 7.4 MG/DL (8.5-10.1) Aspartate Amino Transf (AST/SGOT) 70 U/L (15-37) Sodium Level 134 MEQ/L (136-145) 134 MEQ/L (136-145) Carbon Dioxide Level 18.9 MEQ/L (21.0-32.0) Estimat Glomerular Filtration Rate 78 ML/MIN (>89) Lymphocytes (%) (Auto) 5.3 % (9.0-44.0) 5.6 % (9.0-44.0) Lymphocytes # (Auto) 0.6 TH/MM3 (1.0-4.8) 0.7 TH/MM3 (1.0-4.8) Lymphocytes % 4 % (9-44) Metamyelocytes 2 % (0-1) Random Glucose 121 MG/DL (74-106) Protein Corrected Calcium 8.2 MG/DL (8.5-10.1) Tumor Marker Alpha Fetoprotein 1748.4 NG/ML (0.5-8.0) Lactic Acid Level 2.2 mmol/L (0.4-2.0) Test 11/17/16 18:10 Lactic Acid Level 2.2 mmol/L (0.4-2.0) Imaging Last Impressions Chest X-Ray 11/17/16 0000 Signed Impressions: Service Date/Time: Thursday, November 17, 2016 20:32 - CONCLUSION: Right lower lobe mass again noted. No acute pneumonia seen. Cody Morales MD Cholangiopancreatography MRI 11/16/16 0000 Signed Impressions: Service Date/Time: October 08:11 - CONCLUSION: 1. Multiple malignant appearing masses in the liver and metastatic disease is suspected. 2. Probable benign lesion involving the anterior portion of the spleen could be followed. 3. Not mentioned above is masslike density in right lung discussed on the patient's prior CT angiogram of the chest. Antony Jasso MD Abdomen/Pelvis CT 11/15/16 1728 Signed Impressions: Service Date/Time: Tuesday, November 15, 2016 17:40 - CONCLUSION: 1. Metastatic disease to the liver. 2. Patchy infiltrates in the visualized lungs. 3. L5 pars defects. Goyo Santillan MD CT Angiography 11/15/16 1351 Signed Impressions: Service Date/Time: Tuesday, November 15, 2016 15:58 - CONCLUSION: 1. Right lower lobe pulmonary mass worrisome for primary bronchogenic carcinoma or metastatic lesion. 2. Acute pulmonary embolus on the right. This is relatively small volume thrombus. 3. Metastatic disease involving the liver. Tanner Foy Jr., MD Brain MRI 11/15/16 1351 Signed Impressions: Service Date/Time: Tuesday, November 15, 2016 14:43 - CONCLUSION: 1. No acute intracranial abnormality. 2. No MRI evidence to suggest metastatic disease to the brain. 3. Atrophy. Tanner Foy Jr., MD PE at Discharge GENERAL: This is a well-nourished, well-developed patient, in no apparent distress. CARDIOVASCULAR: Regular rate and rhythm RESPIRATORY: CTA B/L GASTROINTESTINAL: Abdomen soft, mild right upper quadrant tenderness, no rebound , nondistended. Normal active bowel sounds MUSCULOSKELETAL: Extremities without clubbing, cyanosis, or edema. NEURO: Alert & Oriented x4 to person, place, time, situation. Moves all ext x4 Pt update on day of discharge f/u for intractable pain patient stated pain is controlled. he is very anxious to go home. he has no other complaints. He stated he denied any symptoms suggestion PNA such as fever, chills, SOB, or cough. patient feels he is at baseline. he stated he solely came in for pain. d/w his daughter and nurse. Hospital Course is 71 yo, of [place] with history inclusive of Stage IV hepatocellular cancer (he is followed by Dr. Shilo Argueta, Oncology), hypertension , hyperlipidemia, coronary artery disease, heart disease, diabetes who presented with uncontrolled RUQ pain. Hypotension -most likely due to dehydration. patient was treated empirically for sepsis with IVFs and levaquin but he did not displayed any signs of sepsis. Labs only significant for mildly elevated WBC per Bond Tr[employer] this is baseline and he can see this with his cancer. -throughout hospital course no signs of sepsis and infectious work negative upon discharge. Right upper quadrant intractable pain due to liver cancer with metastasis -patient put on IV narcotics then with long-acting morphine with controlled of pain. -patient has follow up appointment with Dr. Argueta on Sunday. History of Pulmonary embolism- CTA showed pulmonary embolism and likely subacute. Continue anticoagulation per oncology, respiratory status has been stable. Patient has stable stats room air -Oncology; , feels that he is at baseline. -manage pain with long-acting narcotics -continue Lovenox 150 mg sq daily, defer to oncology about dosing and to determine if a different anticoagulation needs to be prescribed. Hypertension now hypotensive only to rule out underlying infection versus bleed versus narcotic induce hypotension -Discontinue lisinopril 20 mg daily and he was normotensive off of it. Diabetes mellitus type II -finger sticks q ac and HS -sliding scale novolog, low dose regimen. -ADA 1800 calories consistent carbohydrate diet Pt Condition on Discharge: Stable Discharge Disposition: Discharge Home Discharge Time: <= 30 minutes Discharge Instructions DIET: Follow Instructions for: Diabetic Diet Activities you can perform: Regular-No Restrictions Follow up Referrals: PCP Follow-up New Medications: Morphine ER (Morphine ER) 30 Mg Tab 30 MG PO Q12HR for Pain, #60 TAB Sennosides-Docusate Sodium (Senna Plus 8.6-50 mg) 1 Tab Tab 1 TAB PO BID for Constipation, #30 TAB 0 Refills Continued Medications: Enoxaparin Inj (Lovenox Inj) 120 Mg/0.8 Ml Syr 150 MG SQ DAILY for Blood Clot Prevention, SYRINGE 0 Refills Megestrol (Megestrol) 20 Mg Tab 10 MG PO BID, TAB 0 Refills Metformin (Metformin) 500 Mg Tab 500 MG PO BIDPC for Blood Sugar Management, #60 TAB 0 Refills With meals Oxycodone (Oxycodone) 5 Mg Cap Unknown Dose PO DIRECTED PRN for PAIN, CAP 0 Refills [nexvar] () 2 TAB PO BID Discontinued Medications: Lisinopril (Lisinopril) 20 Mg Tab 20 MG PO DAILY, #30 TAB 0 Refills Morphine ER (Morphine ER) 15 Mg Tab 15 MG PO DIRECTED PRN for PAIN SCALE 1 TO 10, TAB 0 Refills Marichuy Escobar MD Nov 18, 2016 09:13
== END 2016-11-18 10:02 | disposition home or self-care (01) | DRG 947 ==
LOC: NEPC 13:25 → NEDA 17:44 → OBSVTOIN 18:09 → HOCA 20:06
PROVIDERS: ADMIT Family Medicine; ATTEND Family Medicine
DX: G89.3 Neoplasm related pain (acute) (chronic) (principal); E43 Unspecified severe protein-calorie malnutrition; C22.9 Malignant neoplasm of liver, not specified as primary or secondary; C78.00 Secondary malignant neoplasm of unspecified lung; C79.51 Secondary malignant neoplasm of bone; I95.9 Hypotension, unspecified; E86.0 Dehydration; E11.9 Type 2 diabetes mellitus without complications; I10 Essential (primary) hypertension; I25.10 Atherosclerotic heart disease of native coronary artery without angina pectoris; E78.5 Hyperlipidemia, unspecified; Z86.711 Personal history of pulmonary embolism; Z79.84 Long term (current) use of oral hypoglycemic drugs; Z68.29 Body mass index [BMI] 29.0-29.9, adult; Z79.01 Long term (current) use of anticoagulants
CPT/HCPCS: 36415; 70553; 71020; 71275; 74176; 74183; 76377; 77290; 77295; 77300; 77334; 80048; 80053; 82105; 82565; 82948; 83605; 83615; 84155; 85007; 85025; 85027; 85610; 85730; 87040; 96360; 96374; 96375; 99214; 99223; A9579; G0463; J1170; J1626; J1650; J1956; J7030; Q9967

== ENCOUNTER 2017-03-13 09:04 | Day surgery (SDC) | payer MEDICARE, OTHER ==
[~2017-03-13] VITALS: Ht 167.6 cm; Wt 79.1 kg
[~2017-03-13 09:04] MED LIST changes: -LISI-515 PO; -MORP1TAB24 PO; +MORP1TAB25 PO; +SENN1TAB PO; +SODIUM CHLORIDE 0.9% 1000 ML IV SCH
[2017-03-13 09:21] VITALS: BP 96/53; PULSE 67; RESP 20; TEMP 99.4; O2SAT 90
[2017-03-13] MEDS ORDERED: LISI-515 PO (09:25)
[2017-03-13] MEDS ORDERED: FURO20TA PO (09:25)
[2017-03-13] MEDS ORDERED: ceFAZolin 2 GM PREMIX 50 ML - implanted port/tunneled catheter insertion IV SCH (09:30)
[2017-03-13] MEDS ORDERED: POVIDONE IODINE 5% (ANTISEPSIS KIT) 4 APPLICATIONS EACH NARE SCH (09:30)
[2017-03-13] MEDS ORDERED: VANCOMYCIN 1000 MG/NS 250 ML - implanted port/tunneled catheter IV SCH ×2 (09:30)
[2017-03-13] MEDS ORDERED: CHLORHEXIDINE GLUCONATE 2 % 1 PACK (2 CLOTHS) TOPICAL SCH (09:30)
[2017-03-13 10:09] LABS: APTT (PATIENT) 27.6 SEC (24.3-30.1); INTERNATIONAL NORMALIZED RATIO 1.2 RATIO
[2017-03-13] MEDS ORDERED: LIDOCAINE 1%/EPINEPHrine 1:100,000 SOLN 20 ML VIAL ONE (10:33)
[2017-03-13 11:20] VITALS: BP 112/65; PULSE 106; RESP 20; O2SAT 97
[2017-03-13] MEDS ORDERED: MIDAZOLAM HCL 2 MG/2 ML VIAL IV ONE ×2 (11:21)
--- NOTE | 2017-03-13 11:24 | PD.RAD ---
Post Procedure Progress Note Pre Procedure Diagnosis: (1) Metastasis Post Procedure Diagnosis: (1) Metastasis Procedure Date: Mar 13, 2017 Supervising Radiologist: Ga Jones Proceduralist/Assist: Danae Harding, RT(R)(), Clarisse Cueto RT(R) Anesthesia: Local, Analgesia, Conscious Sedation Plan of Activity Patient Condition: Good See PACS Report for procedural detail/treatment Central Venous Access Device Procedure 1 Right Internal Jugular Infusaport (power port) Placement single lumen Latvian: 8 Ga Jones MD Mar 13, 2017 11:24
[2017-03-13] MEDS ORDERED: SODIUM CHLORIDE 0.9% FLUSH 10 ML FLUSH IVF PRN (11:30)
[2017-03-13 11:35] VITALS: BP 91/50; PULSE 107; RESP 20; O2SAT 97
[2017-03-13 12:05] VITALS: BP 90/59; PULSE 113; RESP 20; O2SAT 97
[2017-03-13 12:35] VITALS: BP 94/64; PULSE 116; RESP 20; O2SAT 96
[2017-03-13 13:05] VITALS: BP 97/61; PULSE 110; RESP 20; O2SAT 97
--- NOTE | 2017-03-13 16:26 | RADRPT ---
EXAM DATE/TIME: 03/13/2017 10:22 [place] COMPARISON: No previous studies available for comparison. INDICATIONS : Patient with history of hepatocellular carcinoma in need of [id number] placement. MEDICAL HISTORY : Liver cancer, HTN, Diabetes, CAD, DVT, PE SURGICAL HISTORY : Cardiac stent, Kyphoplasty w/RFA ENCOUNTER: Initial ACUITY: 7-11 months PAIN SCORE: 1/10 LOCATION: Abdomen FLUORO TIME: 0.5 minutes IMAGE SERIES: 1 SEDATION TIME: 30 minutes ACCESS: Right internal jugular vein SEDATION: 1.) 2.5 mg midazolam (Versed) IV 2.) 125 mcg fentanyl (Sublimaze) IV Prophylactic antibiotics were administered with appropriate pre-procedure timing. Vancomycin within 2 hours of procedure, Ancef (or alternative) within 1 hour of procedure. DEVICE: 1. 8 Vietnamese single lumen Smart power port with vortex PROCEDURE : 1. Continuous pulse oximetry and EKG monitoring. 2. Intravenous conscious sedation. 3. Ultrasound guidance for venous access. 4. Fluoroscopic guided implantable central venous port placement. The patient was placed supine. The neck was prepped in sterile fashion. Full sterile technique was u sed, including cap, mask, sterile gloves and gown, and a large sterile sheet. Hand hygiene and 2% ch lorhexidine Betadine was utilized per protocol for cutaneous antisepsis with appropriate dry time for site. Sterile gel and sterile probe cover were utilized for ultrasound guidance. The skin and sub cutaneous tissues were infiltrated with local anesthetic solution. Under direct ultrasound guidance, central venous access was accomplished in the targeted vessel. The ultrasound images depicting access guidance were stored and saved to PACS for permanent record. A s ubcutaneous pocket was created using blunt dissection. The port was introduced to the pocket. The c atheter tubing was fed through a subcutaneous tunnel to the venotomy site. The catheter tubing was c ut to a suitable length and then was introduced through a valved Peel-Away sheath and positioned with catheter tubing tip at the cavo-atrial junction level. The pocket incision was closed with subcutic ular Vicryl suture. Steri-Strips were applied. The port was flushed and locked with heparin solutio n per protocol. Sterile dressing was applied to the site. The patient tolerated the procedure well. Conscious sedation was performed with the prescribed dosages and duration as above in the presence of an independent trained radiology nurse to assist in the monitoring of the patient. EKG and oximetry remained stable throughout the procedure. The patient tolerated the procedure well and there were no complications. The patient was sent to post anesthesia recovery in stable condition. CONCLUSION: Uncomplicated ultrasound and fluoroscopic guided implanted central venous port catheter placement as described in detail above. An 8 Vietnamese Power port was placed. Ga Jones MD on March 13, 2017 at 16:24 Board Certified Radiologist. This report was verified electronically.
== END 2017-03-13 13:10 | disposition home or self-care (01) ==
LOC: HROP 09:04 → HRIP 09:07 → HROP 13:10
PROVIDERS: ATTEND Internal Medicine
DX: Z45.2 Encounter for adjustment and management of vascular access device (principal); C22.0 Liver cell carcinoma; I25.10 Atherosclerotic heart disease of native coronary artery without angina pectoris; E11.9 Type 2 diabetes mellitus without complications; I10 Essential (primary) hypertension; Z79.84 Long term (current) use of oral hypoglycemic drugs
CPT/HCPCS: 36561; 76937; 77001; 85610; 85730; 99152; 99153; C1788; J1642; J2250; J3010; J3370; J7030; J7050